=== PATIENT | male | born 1930 | race Caucasian/White ===

== ENCOUNTER 2018-11-08 04:35 | Inpatient (IN) | payer OTHER ==
[2018-11-08] VITALS (18 sets, daily range): BP systolic 93–140; BP diastolic 41–65; Ht 175.3 cm; Wt 81.1 kg
[~2018-11-08] VITALS: Ht 175.3 cm; Wt 81.1 kg
--- NOTE | ~2018-11-08 | HEMODYNAMI ---
PATIENT:ALONDRA DEXTER MEDICAL RECORD: [id number] : 34 [id number] ADMISSION DATE: 11/08/18 Generatedon:11/08/20185:36 Patient name: ALONDRA DEXTER Patient #: [id number] SSN: : 1930 Date of study: 11/08/2018 Page: Of Hemodynamic Procedure Report Patient Data Patient Demographics Procedure consent was obtained First Name: ALONDRA Gender: Male Last Name: ISACC : 1930 Patient #: [id number] Age: 88 year(s) Race: Unknown Additional ID: [id number] Admission Admission Data Admission Date: 11/08/2018 Admission Time: 4:35 Arrival Date: 11/08/2018 Arrival Time: 0:00 Admit Source: Emergency department Procedure Procedure Types Cath Procedure Diagnostic Procedure LHC LHC w/Coronaries Sedation Charges Moderate Sedation up to 30 minutes PCI Procedure Coronary Stent Coronary Stent Initial Procedure Description Procedure Date Procedure Date: 11/08/2018 Procedure Start Time: 5:10 Procedure End Time: 5:30 Procedure Staff Name Function Alexsander Rivera MD Performing Physician Holly Paul RT Monitor Christine Proctor RN Nurse Eladia Adhikari RT Scrub Procedure Data Cath Procedure Fluoroscopy Diagnostic fluoroscopy Total fluoroscopy Time: 6.8 time: 6.8 min min Diagnostic fluoroscopy Total fluoroscopy dose: dose: 1011 mGy 1011 mGy Contrast Material Contrast Material Type Amount (ml) Isovue 300 127 Entry Location Entry Primary Successful Side Size Upsize Upsize Entry Closure Succes sful Closure Location (Fr) 1 (Fr) 2 (Fr) Remarks Device Remarks Femoral Left 6 Fr Exoseal artery Short Estimated blood loss: 5 ml Diagnostic catheters Device Type Used For End Catheter Placement MULTIPACK Pigtail 5 Fr LV Angiography catheter MULTIPACK JL 4.0 5Fr Left Coronary catheter Angiography MULTIPACK 3DRC 5Fr Right Coronary catheter Angiography Procedure Complications No complications Procedure Medications Medication Administration Route Dosage 0.9% NaCl I.V. 100 ml/hr Oxygen etCO2 Nasal cannula 3 l/min Lidocaine 2% added to field 20 Heparin Flush Bag added to field 2 bags (1000units/500ml NS) Amiodarone I.V. drip 1 mg/min (600mg/100ml) Phenergan I.V. 25 mg Versed I.V. 2 mg Fentanyl I.V. 100 mcg Integrilin (Bolus I.V. 9 ml 2mg/ml) Heparin Bolus I.V. 5000 units Integrilin (Bolus wasted 1 ml 2mg/ml) Benadryl I.V. 50 mg Integrilin (Bolus I.C. 9 ml 2mg/ml) Integrilin (Bolus wasted 1 ml 2mg/ml) Lopressor I.V. 5 mg Plavix P.O. 600 mg Hemodynamics Rest Heart Rate: 154 (bpm) Snapshots Pre Cath Intra NCS Post Cath Vital Signs Time Heart Resp SPO2 etCO2 NIBP (mmHg) Rhythm Pain Sedation Rate (ipm) (%) (mmHg) Status Level (bpm) 4:59:18 87 24 97 16 141/70(107) NSR 0 (11) 10(A) , No pain 5:03:45 86 13 97 10 125/75(101) NSR 0 (11) 10(A) , No pain 5:08:05 89 12 97 8.9 136/72(104) NSR 0 (11) 9(A) , No pain 5:12:29 93 14 98 17.9 142/70(104) NSR 0 (11) 9(A) , No pain 5:17:28 69 24 98 5.9 Measuring NSR 0 (11) 9(A) , No pain 5:17:49 83 17 97 14.9 98/43(53) NSR 0 (11) 9(A) , No pain 5:22:47 82 14 98 11.2 Measuring NSR 0 (11) 9(A) , No pain 5:22:54 82 15 98 11.2 124/62(85) NSR 0 (11) 9(A) , No pain 5:27:10 82 19 99 16 120/68(90) NSR 0 (11) 10(A) , No pain 5:31:28 87 18 98 12.7 116/62(94) NSR 0 (11) 10(A) , No pain Medications Time Medication Route Dose Verified Delivered Reason Notes Effectiveness by by 5:05:29 Benadryl I.V. 50 mg Alexsander Christine used for Nicole Proctor seaman 5:05:40 0.9% NaCl I.V. 100 Alexsander Christine used for ml/hr Nicole rPoctor seaman 5:05:47 Oxygen etCO2 3 Alexsander Christine used for Nasal l/min Nicole Proctor procedure cannula RN 5:05:53 Lidocaine 2% added 20ml Alexsander Alexsander for local to vial Nicole Rivera MD anesthetic field 5:05:57 Amiodarone I.V. 1 Alexsander Christine used for infus ing (600mg/100ml) drip mg/min Nicole Proctor procedure upon RN arrival to 5:05:57 Heparin Flush added 2 bags Alexsander Brandrey used for Bag to Nicole Rivera MD procedure (1000units/500ml field NS) 5:06:16 Phenergan I.V. 25 mg Alexsander Christine for nausea Nicole Proctor RN 5:06:26 Versed I.V. 2 mg Alexsander Christine for sedation Nicole Proctor RN 5:06:33 Fentanyl I.V. 100 Alexsander Christine for sedation mcg Nicole Proctor RN 5:11:59 Integrilin I.V. 9 ml Alexsander Christine for (Bolus 2mg/ml) Nicole Proctor antiplatelet RN therapy 5:12:10 Heparin Bolus I.V. 5000 Alexsander Christine for verif ied units Nicole Proctor anticoagulation with Dr. BASSEM Rivera 5:12:24 Integrilin wasted 1 ml Alexsander Hogana for (Bolus 2mg/ml) Nicole Proctor antiplatelet RN therapy 5:22:21 Integrilin I.C. 9 ml Alexsander Brandrey for (Bolus 2mg/ml) Nicole Rivera MD antiplatelet therapy 5:23:53 Integrilin wasted 1 ml Alexsander Beltre for (Bolus 2mg/ml) Nicole Rivera MD antiplatelet therapy 5:26:48 Lopressor I.V. 5 mg Alexsander Christine Per physician Nicole Proctor RN 5:27:51 Plavix P.O. 600 mg Alexsander Caraballoyla for Nicole Proctor antiplatelet RN therapy Procedure Log Time Note 4:40:45 Christine Proctor RN sent for patient. Start room use. 4:40:50 PCI Cath status Emergency 4:47:35 Admit Source: Emergency department 4:47:40 Arrival Date: 11/08/2018 12:00:00 AM 4:52:55 Time tracking: Regular hours (M-F 7:00 - 5:00) 4:53:01 Plan of Care:Hemodynamics will remain stable., Cardiac rhythm will remain stable., Comfort level will be maintained., Respiratory function will remain adequate., Patient/ family verbilizes understanding of procedure., Procedure tolerated without complication., Recovers from procedure without complications.. 4:53:08 Patient received from ED to CCL 1 Alert and oriented. Tansferred to table in Supine position. 4:53:10 Signed procedure consent form obtained from patient. 4:53:12 Warm blankets applied, and terra hugger turned on for patient comfort. 4:53:12 Correct patient and procedure confirmed by team. 4:53:12 ECG and BP/O2 sat monitors applied to patient. 4:57:54 Vital chart was started 5:00:39 Baseline sample Acquired. 5:00:49 Full Disclosure recording started 5:00:53 H&P Date Dictated: 11/08/2018 New H&P dictated by physician.. 5:00:54 Pre-procedure instructions explained to patient. 5:00:55 Pre-op teaching completed and patient verbalized understanding. 5:00:56 Family in waiting room. 5:00:58 Patient NPO since Midnight. 5:01:28 Is the patient allergic to Iodine/contrast media? No. 5:01:29 Was the patient premedicated? No 5:01:31 Is patient on blood thinner?Yes 5:01:34 ACC The patient was administered the following blood thiners within the last 24 hours: ACCHeparin 5:01:38 Patient diabetic? No. 5:01:40 Previous problem with sedation/anesthesia? No ? 5:01:42 Snore? Unknown 5:01:54 Sleep apnea? No 5:01:55 Deviated septum? No 5:01:56 Opens mouth fully? Yes 5:01:57 Sticks out tongue? Yes 5:02:30 Airway obstruction? Unknown ? 5:02:33 Dentures? Unknown ? 5:02:40 Pre procedure: right dorsailis pedis pulse 1+ Palpable, but thready & weak; easily obliterated 5:02:42 Pre procedure: left dorsailis pedis pulse 1+ Palpable, but thready & weak; easily obliterated 5:02:45 Patient pain scale 7/10 ?. 5:02:54 IV patent on arrival in right forearm with 0.9% NaCl at KVO. 5:02:58 Lab results completed and on chart. 5:03:02 Left groin area was prepped with chlora-prep and draped in sterile fashion 5:03:03 Alarms reviewed by R. N. 5:03:04 Sharps counted by scrub and verified by R.N. 5:03:05 Physician arrived 5:03:05 --------ALL STOP TIME OUT------ 5:03:06 Final Timeout: patient, procedure, and site verified with staff and physician. All members of the team are in agreement. 5:03:09 Left groin site verified by team. 5:03:12 Fire Safety Assessment: A--An alcohol-based skin anteseptic being used preoperatively., C--Open oxygen or nitrous oxide is being used., D--An ESU, laser, or fiber-optic light is being used. 5:03:17 Sedation plan: IV Moderate Sedation Medication:Versed, Fentanyl 5:05:29 Benadryl 50 mg I.V. was administered by Christine Proctor RN; used for procedure; 5:05:40 0.9% NaCl 100 ml/hr I.V. was administered by Christine Proctor RN; used for procedure; 5:05:47 Oxygen 3 l/min etCO2 Nasal cannula was administered by Christine Proctor RN; used for procedure; 5:05:53 Lidocaine 2% 20ml vial added to field was administered by Alexsander Rivera MD; for local anesthetic; 5:05:57 Heparin Flush Bag (1000units/500ml NS) 2 bags added to field was administered by Alexsander Rivera MD; used for procedure; 5:05:57 Amiodarone (600mg/100ml) 1 mg/min I.V. drip was administered by Christine Proctor RN; used for procedure; infusing upon arrival to 5:06:04 Use device set Femoral Dx 5:06:05 ACIST Syringe (18542) opened to sterile field. 5:06:06 Bag Decanter (2002S) opened to sterile field. 5:06:06 Medline Cath Pack ([id number]) opened to sterile field. 5:06:08 ACIST Hand Control (07300) opened to sterile field. 5:06:08 ACIST Manifold (57084) opened to sterile field. 5:06:08 DIAGNOSTIC Multipack 5Fr catheter set ([id number]) opened to sterile field. 5:06:09 Tegaderm 4 x 4 (1626W) opened to sterile field. 5:06:10 EMERALD Guide Wire (436-474) opened to sterile field. 5:06:16 Phenergan 25 mg I.V. was administered by Christine Proctor RN; for nausea; 5:06:22 SHEATH 6FR [place] (JXE716) opened to sterile field. 5:06:26 Versed 2 mg I.V. was administered by Christine Proctor RN; for sedation; 5:06:33 Fentanyl 100 mcg I.V. was administered by Christine Proctor RN; for sedation; 5:06:44 Baseline sample Acquired. 5:07:46 ECG and BP/O2 sat monitors applied to patient. 5:07:52 2) 60-89 Mildly reduced kidney function, and other findings (as for stage 1) point to kidney disease. 5:08:22 Zero performed for pressure channel P1 5:08:44 Procedure started. 5:10:31 Local anesthetic to left femerol artery with Lidocaine 2% by Alexsander Rivera MD.INITIAL ACCESS ONLY 5:11:39 A 6 Fr Short sheath was inserted into the Left Femoral artery 5:11:46 A MULTIPACK Pigtail 5 Fr catheter was advanced over the wire and used for LV Angiography. 5:11:51 LV hemodynamics recorded. 5:11:52 LV gram done using JASMINE 5:11:54 Injector settings: Ml/sec: 5, Volume: 15, 5:11:59 Integrilin (Bolus 2mg/ml) 9 ml I.V. was administered by Christine Proctor RN; for antiplatelet therapy; 5:12:00 EF : 20 % 5:12:03 Catheter removed. 5:12:08 A MULTIPACK JL 4.0 5Fr catheter was advanced over the wire and used for Left Coronary Angiography. 5:12:10 Heparin Bolus 5000 units I.V. was administered by Christine Proctor RN; for anticoagulation; verified with Dr. Rivera 5:12:24 Integrilin (Bolus 2mg/ml) 1 ml wasted was administered by Christine Proctor RN; for antiplatelet therapy; 5:12:36 LCA angiography performed. 5:12:39 Injector settings: Ml/sec: 3, Volume: 6, 5:13:00 Catheter removed. 5:13:07 A MULTIPACK 3DRC 5Fr catheter was advanced over the wire and used for Right Coronary Angiography. 5:13:23 CHOICE PT Extra Support 182cm wire ([id number]) opened to sterile field. 5:13:24 INFLATOR Merit BasixCompak (AN0320) opened to sterile field. 5:13:25 GUIDE 6FR XB 4.0 catheter ([id number]) opened to sterile field. 5:13:55 RCA angiography performed. 5:13:57 Injector settings: Ml/sec: 3, Volume: 6, 5:14:01 ACCDominant side:Left 5:14:01 Catheter removed. 5:14:02 Pre PCI Site: [place] mCirc has 100% stenosis. 5:14:02 ACC Pre-intervention FRIDA Flow is 1. 5:14:02 Proceeding to intervention. 5:14:03 6 Fr xb 4 guide catheter was inserted over the wire 5:14:04 choice pt wire advanced. 5:17:13 Inflate balloon Inflation number: 1 A EUPHORA 3.0 x 20 Balloon ([id number]) was prepped and advanced across the Mid CX 100, then inflated to 7 PIEDAD for 0:10 (min:sec) . 5:17:20 Inflation number: 2 The EUPHORA 3.0 x 20 Balloon ([id number]) was reinflated across the Mid CX , to 7 PIEDAD for 0:10 (min:sec) . 5:17:54 Inflation number: 3 The EUPHORA 3.0 x 20 Balloon ([id number]) was reinflated across the Mid CX , to 7 PIEDAD for 0:10 (min:sec) . 5:18:13 Balloon removed over the wire. 5:19:26 Place stent Inflation Number: 4 A INTEGRITY RX 3.0 x 22 stent ([id number]) was prepped and advanced across the Mid CX . The stent was deployed at 13 PIEDAD for 0:10 (min:sec) . 5:20:00 Stent catheter was removed intact over wire. 5:21:19 Wire removed. 5:21:22 CHOICE PT Extra Support 182cm wire ([id number]) opened to sterile field. 5:21:33 choice pt wire advanced. 5:22:21 Integrilin (Bolus 2mg/ml) 9 ml I.C. was administered by Alexsander Rivera MD; for antiplatelet therapy; 5:23:01 Wire removed. 5:23:10 FIELDER XT 190cm guidewire ([id number]) opened to sterile field. 5:23:53 Integrilin (Bolus 2mg/ml) 1 ml wasted was administered by Alexsander Rivera MD; for antiplatelet therapy; 5:26:48 Lopressor 5 mg I.V. was administered by Christine Proctor RN; Per physician; 5:27:19 Wire removed. 5:27:20 Guide catheter removed. 5:27:37 EXOSEAL 6Fr (EX600) opened to sterile field. 5:27:47 Sheath removed intact; hemostasis achieved with Exoseal to the Left Femoral artery. 5:27:51 Plavix 600 mg P.O. was administered by Christine Proctor RN; for antiplatelet therapy; 5:27:52 ACC Post-intervention FRIDA Flow is 3. 5:28:15 Procedure ended.(Physican Out) 5:29:06 Fluoroscopy time 06.80 minutes. 5:29:10 Fluoroscopy dose: 1011 mGy 5:29:10 Flurop Dose total: 1011 5:29:23 Dose Area Product 21329 mGy/cm. 5:29:30 Contrast amount:Isovue 300 127ml. 5:29:31 Sharps counted by scrub and verified by R.N. 5:29:37 Insertion/operative site no bleeding no hematoma. 5:29:40 Post-op/insertion site Left Femoral artery dressed using a 4 x 4 and Tegaderm. 5:29:42 Post Procedure Pulses reassessed and unchanged 5::44 Post procedure rhythm: unchanged. 5:29:47 Estimated blood loss: 5 ml 5:29:57 Post procedure instruction explained to patient.Patient verbalizes understanding. 5::58 Patient needs reinforcement of post procedure teaching. 5:30:32 Procedure type changed to Cath procedure, Diagnostic procedure, LHC, LHC w/Coronaries, Sedation Charges, Moderate Sedation up to 30 minutes, PCI procedure, Coronary Stent, Coronary Stent Initial 5:30:33 Procedure and supply charges have been captured, reviewed, submitted and are correct. 5:30:38 Procedure Complication : No complications 5:30:41 Vital chart was stopped 5:30:42 See physician's report for complete and final results. 5:30:53 Report given to CVICU. 5:30:56 Patient transfered to CVICU with Stretcher. 5:30:59 Procedure ended. 5:30:59 Full Disclosure recording stopped 5:31:07 ACC-PCI Only Patient was given prescriptions, or instructed by Alexsander Rivera MD to start/continue the following medications upon discharge: Plavix 5:31:09 End room use (Document Last) Intervention Summary Intervention Notes Time ActionType Lesion and Equipment Action# Pressure Duration Attributes Used 5:17:13 Inflate Mid CX EUPHORA 3.0 1 7 00:10 balloon x 20 Balloon ([id number]) 5:17:20 Reinflate Mid CX EUPHORA 3.0 2 7 00:10 balloon x 20 Balloon ([id number]) 5:17:54 Reinflate Mid CX EUPHORA 3.0 3 7 00:10 balloon x 20 Balloon ([id number]) 5:19:26 Place stent Mid CX INTEGRITY RX 4 13 00:10 3.0 x 22 stent ([id number]) Device Usage Item Name Manufacture Quantity Catalog Number Hospital Part Current [facility] Lot# / Charge Number Stock Stock Serial# Code ACIST Acist 1 04927 568404 776298 742692 20 Syringe Medical (35366) Systems Inc Bag Decanter Microtek 1 2001S 195259 07413 489863 5 () Medical Inc. Medline Cath Medline 1 [id number] 763334 22744 880071 5 Pack ([id number]) ACIST Hand Acist 1 52512 552622 008138 721562 5 Control Medical (73346) Systems Inc ACIST Acist 1 48708 154705 048336 962316 5 Manifold Medical (30537) Systems Inc DIAGNOSTIC Cardinal 1 TA8727 846732 36386 696359 30 Multipack Health 5Fr catheter set (BX4857) Tegaderm 4 x 3M 1 1626W 851168 075942 534272 5 4 (1626W) EMERALD Cardinal 1 502-455 086886 489163 961909 5 Guide Wire Health (502455) SHEATH 6FR Terumo 1 OHY522 028764 076614 660701 40 [place] (MIG280) MULTIPACK Cardinal 1 218730 5 Pigtail 5 Fr Health catheter MULTIPACK JL Cardinal 1 043940 5 4.0 5Fr Health catheter MULTIPACK Cardinal 1 156088 5 3DRC 5Fr Health catheter CHOICE PT [place] 2 [id number] 400372 670151 830622 5 Extra Scientific Support 182cm wire ([id number]) INFLATOR Merit 1 GN4072 835977 418507 910718 15 [employer] Medical BasixCompak (EQ4994) GUIDE 6FR XB Cardinal 1 [id number] 470981 342252 732971 2 4.0 catheter BioAtlantis (47129848) EUPHORA 3.0 Medtronic 1 [id number] 316938 973955 745488 5 [id number] x 20 Balloon ([id number]) INTEGRITY RX Medtronic 1 [id number] 111275 284659 663297 5 [id number] 3.0 x 22 stent ([id number]) FIELDER XT Hendrickson 1 [id number] 497430 11100 207100 5 190cm Vascular guidewire ([id number]) EXOSEAL 6Fr Cardinal 1 EX600 945370 105367 648491 10 (EX600) Health Signature Audit [place]ball Stage Time Signature Unsigned Intra-Procedure 11/08/2018 Holly Paul 5:36:46 AM RT(R) Signatures Performing Physician : Signature : Alexsander Rivera MD Date : Time : Monitor : Holly Paul RT Signature : Date : Time : Nurse : Christine Proctor RN Signature : Date : Time : [place] [id number] [place] [address]
[2018-11-08] MEDS ORDERED: OMEPRAZOLE20 M1 PO (08:22)
[2018-11-08] MEDS ORDERED: DONEPEZIL HCL5 MG PO (08:23)
[2018-11-08] MEDS ORDERED: FLOMAX0.4 MG PO (08:24)
[2018-11-08] MEDS ORDERED: ZYRTEC10 MG PO (08:25)
[2018-11-08] MEDS ORDERED: PIOGLITAZONE15 MG PO (08:26)
[2018-11-08] MEDS ORDERED: PROSCAR5 MG PO (08:26)
[2018-11-08 08:55] LABS: BASOPHILS 0.1 % (0-2); EOSINOPHILS 0.3 % (0-7); HEMATOCRIT 37.3 % (42.0-54.0); IMMATURE GRANULOCYTES 0.4 % (0-5); LYMPHOCYTES 9.4 % (15-50); MCH 27.3 pg (26.0-34.0); MCHC 34.9 g/dL (31.0-37.0); MCV 78.2 fL (80.0-100.0); MEAN PLATELET VOLUME 9.5 fL (7.4-10.4); MONOCYTES 5.9 % (2-11); NEUTROPHILS 83.9 % (40-80); PLATELET COUNT 319 10x3/uL (130-400); RBC 4.77 10x6/uL (4.20-6.10); RDW 14.3 % (11.5-14.5); WBC 18.1 10x3/uL (4.8-10.8)
[2018-11-08 09:13] LABS: ANION GAP 16.6 mmol/L (8-16); BILIRUBIN - TOTAL 0.39 mg/dL (0.2-1.3); CALCIUM 8.2 mg/dL (8.5-10.1); CARBON DIOXIDE 19.7 mmol/L (21.0-32.0); CREATININE - SERUM 1.3 mg/dL (0.6-1.3); POTASSIUM - SERUM 4.3 mmol/L (3.5-5.1); PROTEIN - SERUM 7.1 g/dL (6.4-8.2)
[2018-11-09] VITALS (19 sets, daily range): BP systolic 99–234; BP diastolic 39–124
[2018-11-09] MEDS ORDERED: EFFIENT10 MG PO (09:27)
[2018-11-09] MEDS ORDERED: BAYER CHEWABLE81 MG PO (09:33)
[2018-11-09] MEDS ORDERED: PRAVACHOL40 MG PO (10:25)
--- NOTE | 2018-11-09 12:09 | MORECARE ---
CASE MANAGEMENT DISCHARGE SUMMARY PATIENT: ALONDRA DEXTER UNIT: [id number] ADM DATE: 11/08/18 AGE: 88 : 32 SEX: M ROOM/BED: D.CV06 AUTHOR: MICHEL SENA PHYSICIAN: REFERRING PHYSICIAN: NILS STANTON MD DATE OF SERVICE: 11/09/18 Discharge Plan Patient Name: ALONDRA DEXTER Facility: [facility]:[place] : 1930 Planned Disposition: Home with Home Health Anticipated Discharge Date: Discharge Date: Expected LOS: Initial Reviewer: [email or web address] Initial Review Date: 11/08/2018 Generated: 11/09/18 1:09 pm Comments DCP- Discharge Planning Updated by [email or web address]: Su Ventura on 11/09/18 10:[address] CM called the [place] expeditor, spoke to [facility], notified her the patient transferred from Outside facility to our ER and went to laboratory geneticist. Informed her that the patient had a dc order for today. Su Ventura RN, [facility] DCPIA - Discharge Planning Initial Assessment Updated by [email or web address]: Yamel Lua on 11/09/18 12:05 pm * Is the patient Alert and Oriented? Yes * How many steps to enter\exit or inside your home? RAMP * PCP [place] -[place] * Pharmacy [facility] * Preadmission Environment Home with Family * ADLs Partial Dependent * Partial ADLs (Assistance needed) Bathing Dressing Eating Medication Management Toileting Transfers * Other Equipment WALKER, W/C ,BSC, HAND RAILS, * List name and contact numbers for known caregivers / representatives who currently or will assist patient after discharge: PEMA [facility]- [phone] * Verbal permission to speak to the caregivers and representatives has been obtained from the patient. Yes * Community resources currently utilized None * Additional services required to return to the preadmission environment? No * Can the patient safely return to the preadmission environment? Yes * Has this patient been hospitalized within the prior 30 days at any hospital? Yes Patient Name: ALONDRA DEXTER Page 97372 at 1209 All edits/amendments must be made on the electronic document DICTATION DATE: 11/09/181208 FIRST AID DIRECTOR: KARELY 11/09/181208 RPT#: [id number] DC DATE: STATUS: ADM IN [facility] [address] [place] [address] END OF REPORT
--- NOTE | 2018-11-09 12:20 | MORECARE ---
CASE MANAGEMENT DISCHARGE SUMMARY PATIENT: ALONDRA DEXTER UNIT: [id number] ADM DATE: 11/08/18 AGE: 88 : 32 SEX: M ROOM/BED: D.06 AUTHOR: JAIDA,DOC PHYSICIAN: REFERRING PHYSICIAN: NILS STANTON MD DATE OF SERVICE: 11/09/18 Discharge Plan Patient Name: ALONDRA DEXTER [facility] [facility] 1930 Planned Disposition: Home with Home Health Anticipated Discharge Date: Discharge Date: Expected LOS: Initial Reviewer: [email or web address] Initial Review Date: 11/08/2018 Generated: 11/09/18 1:20 pm Comments DCP- Discharge Planning Updated by [email or web address]: Yamel Lua on 11/09/18 11:[address] Patient Name: ALONDRA DEXTER Admission Status: ER Accout number: [id number] Admission Date: 11-08-2018 : 1930 Admission Diagnosis: Attending: EMILY STANTON Current LOS: 1 Anticipated DC Date: Planned Disposition: Home with Home Health Primary Insurance: [employer] Discharge Planning Comments: CM met with patient and spouse Pema at bedside after explaining CM role and obtaining verbal consent. Patient lives at home with his Pema and plans to return there upon discharge. Patient feels this would be a safe discharge. CM discussed availability / needs of home health and medical equipment. Physical Therapy recommends Home Health Services. [facility] signed for [place] . [facility] notified Scooter @ [facility] will see patient tomorrow and d/c records faxed. IMM signed Patient denies any discharge needs at this time. Patient states he will have his drive him home upon discharge. CM will continue to follow and assist as needed with discharge planning / needs. Menagerie Superintendent: Yamel Lua DCP- Discharge Planning Updated by [email or web address]: Su Ventura on 11/09/18 10:[address] CM called the [place] expeditor, spoke to Gianna, notified her the patient transferred from Outside facility to our ER and went to earthmoving labourer. Informed her that the patient had a dc order for today. Su Ventura RN, [facility] DCPIA - Discharge Planning Initial Assessment Updated by [email or web address]: Yamel Lua on 11/09/18 12:05 pm * Is the patient Alert and Oriented? Yes * How many steps to enter\exit or inside your home? RAMP * PCP [place] * [facility] [place] [facility] * Preadmission Environment Home with Family * ADLs Partial Dependent * Partial ADLs (Assistance needed) Bathing Dressing Eating Medication Management Toileting Transfers * Other Equipment WALKER, W/C ,BSC, HAND RAILS, * List name and contact numbers for known caregivers / representatives who currently or will assist patient after discharge: PEMA [facility] [phone] * Verbal permission to speak to the caregivers and representatives has been obtained from the patient. Yes * Community resources currently utilized None * Additional services required to return to the preadmission environment? No * Can the patient safely return to the preadmission environment? Yes * Has this patient been hospitalized within the prior 30 days at any hospital? Yes Last DP export: 11/09/18 11:09 a Patient Name: ALONDRA DEXTER Page [phone] at 1220 All edits/amendments must be made on the electronic document DICTATION DATE: 11/09/18 1220 ENVIRONMENTAL TECHNICAL OFFICER: KARELY 11/09/18 1220 RPT#: [id number] DC DATE: STATUS: ADM IN [facility] [address] [place] [address] END OF REPORT
--- NOTE | 2018-11-09 12:29 | MORECARE ---
CASE MANAGEMENT DISCHARGE SUMMARY PATIENT: ALONDRA DEXTER UNIT: [id number] ADM DATE: 11/08/18 AGE: 88 : 32 SEX: M ROOM/BED: D.06 AUTHOR: JAIDA,DOC PHYSICIAN: REFERRING PHYSICIAN: NILS STANTON MD DATE OF SERVICE: 11/09/18 Discharge Plan Patient Name: ALONDRA DEXTER [facility] [facility] 1930 Planned Disposition: Home with Home Health Anticipated Discharge Date: Discharge Date: Expected LOS: Initial Reviewer: [email or web address] Initial Review Date: 11/08/2018 Generated: 11/09/18 1:29 pm Comments DCP- Discharge Planning Updated by [email or web address]: Yamel Lua on 11/09/18 11:[address] Patient Name: ALONDRA DEXTER Admission Status: ER Accout number: [id number] Admission Date: 11-08-2018 : 1930 Admission Diagnosis: Attending: EMILY STANTON Current LOS: 1 Anticipated DC Date: Planned Disposition: Home with Home Health Primary Insurance: [employer] Discharge Planning Comments: CM met with patient and spouse Pema at bedside after explaining CM role and obtaining verbal consent. Patient lives at home with his Pema and plans to return there upon discharge. Patient feels this would be a safe discharge. CM discussed availability / needs of home health and medical equipment. Physical Therapy recommends Home Health Services. [facility] signed for [employer] . [facility] notified Scooter @ [facility] will see patient tomorrow and d/c records faxed. IMM signed Patient denies any discharge needs at this time. Patient states he will have his drive him home upon discharge. CM will continue to follow and assist as needed with discharge planning / needs. Operating Room Assistant: Yamel Lua DCP- Discharge Planning Updated by [email or web address]: Su Ventura on 11/09/18 10:[address] CM called the [place] expeditor, spoke to Gianna, notified her the patient transferred from Outside facility to our ER and went to chemical laboratory scientist. Informed her that the patient had a dc order for today. Su Ventura RN, [facility] DCPIA - Discharge Planning Initial Assessment Updated by [email or web address]: Yamel Lua on 11/09/18 12:05 pm * Is the patient Alert and Oriented? Yes * How many steps to enter\exit or inside your home? RAMP * PCP [facility] -[place] * [place] [facility] * Preadmission Environment Home with Family * ADLs Partial Dependent * Partial ADLs (Assistance needed) Bathing Dressing Eating Medication Management Toileting Transfers * Other Equipment WALKER, W/C ,BSC, HAND RAILS, * List name and contact numbers for known caregivers / representatives who currently or will assist patient after discharge: PEMA [facility] [phone] * Verbal permission to speak to the caregivers and representatives has been obtained from the patient. Yes * Community resources currently utilized None * Additional services required to return to the preadmission environment? No * Can the patient safely return to the preadmission environment? Yes * Has this patient been hospitalized within the prior 30 days at any hospital? Yes External Providers External Provider: Rishabh OkeanaMacario Nelson Next Contact Date: Service Request Date: Service Type: Resolution: Reviewer: Comments: Last DP export: 11/09/18 11:20 a Patient Name: ALONDRA DEXTER Page [id number] at 1229 All edits/amendments must be made on the electronic document DICTATION DATE: 11/09/181228 FELLING MACHINE OPERATOR: KARELY 11/09/181228 RPT#: [id number] DC DATE: STATUS: ADM IN [facility] [address] [place] [address] END OF REPORT
--- NOTE | 2018-11-09 17:11 | MORECARE ---
CASE MANAGEMENT DISCHARGE SUMMARY PATIENT: ALONDRA DEXTER UNIT: [id number] ADM DATE: 11/08/18 AGE: 88 : 32 SEX: M ROOM/BED: D.06 AUTHOR: JAIDA,DOC PHYSICIAN: REFERRING PHYSICIAN: NILS STANTON MD DATE OF SERVICE: 11/09/18 Discharge Plan Patient Name: ALONDRA DEXTER [facility] [facility] 1930 Planned Disposition: Home with Home Health Anticipated Discharge Date: Discharge Date: 11/09/2018 Expected LOS: Initial Reviewer: [email or web address] Initial Review Date: 11/08/2018 Generated: 11/09/18 6:11 pm Comments DCP- Discharge Planning Updated by [email or web address]: Yamel Lua on 11/09/18 11:[address] Patient Name: ALONDRA DEXTER Admission Status: ER Accout number: [id number] Admission Date: 11-08-2018 : 1930 Admission Diagnosis: Attending: EMILY STANTON Current LOS: 1 Anticipated DC Date: Planned Disposition: Home with Home Health Primary Insurance: [employer] Discharge Planning Comments: CM met with patient and spouse Pema at bedside after explaining CM role and obtaining verbal consent. Patient lives at home with his Pema and plans to return there upon discharge. Patient feels this would be a safe discharge. CM discussed availability / needs of home health and medical equipment. Physical Therapy recommends Home Health Services. [facility] signed for [facility] . [facility] notified Scooetr @ [facility] will see patient tomorrow and d/c records faxed. IMM signed Patient denies any discharge needs at this time. Patient states he will have his drive him home upon discharge. CM will continue to follow and assist as needed with discharge planning / needs. Plate Straightener: Yamel Lua DCP- Discharge Planning Updated by [email or web address]: Su Ventura on 11/09/18 10:[address] CM called the [place] expeditor, spoke to [facility], notified her the patient transferred from Outside facility to our ER and went to laborer vineyard. Informed her that the patient had a dc order for today. Su Ventura RN, [facility] DCPIA - Discharge Planning Initial Assessment Updated by [email or web address]: Yamel Lua on 11/09/18 12:05 pm * Is the patient Alert and Oriented? Yes * How many steps to enter\exit or inside your home? RAMP * [place]CP [facility] [place] * [place] [facility] * Preadmission Environment Home with Family * ADLs Partial Dependent * Partial ADLs (Assistance needed) Bathing Dressing Eating Medication Management Toileting Transfers * Other Equipment WALKER, W/C ,BSC, HAND RAILS, * List name and contact numbers for known caregivers / representatives who currently or will assist patient after discharge: PEMA [facility]- [phone] * Verbal permission to speak to the caregivers and representatives has been obtained from the patient. Yes * Community resources currently utilized None * Additional services required to return to the preadmission environment? No * Can the patient safely return to the preadmission environment? Yes * Has this patient been hospitalized within the prior 30 days at any hospital? Yes Last DP export: 11/09/18 11:29 a Patient Name: ALONDRA DEXTER Page [phone] at 1711 All edits/amendments must be made on the electronic document DICTATION DATE: 11/09/181710 BOTTOM PRESSER: KARELY 11/09/181710 RPT#: [id number] DC DATE:11/09/18 STATUS: DIS IN [facility] [address] [place] [address] END OF REPORT
--- NOTE | 2018-11-14 11:09 | EC ---
PATIENT:ALONDRA DEXTER DATE OF SERVICE: 11/08/18 SEX: M MEDICAL RECORD: [id number] DATE OF : [birth year] LOCATION:[place] [address] AGE OF PATIENT: 88 ADMISSION DATE: 11/08/18 REFERRING PHYSICIAN: INTERPRETING PHYSICIAN: NILS RIVERA MD ECHOCARDIOGRAM REPORT ECHO CHARGES 4 ECHO COMPLETE Date: 11/09/18 CLINICAL DIAGNOSIS: POST STENT PLACEMENT, CAD/ASSESS EF ECHOCARDIOGRAPHIC MEASUREMENTS (adult normal given) AC root (d.<3.7cm) 3.8 cm LV Septum d (<1.2 cm> 1.5 cm Valve Excursion 1.5 cm LV Septum (systole) 1.7 cm Left Atria (s.<4.0cm> 3.9 cm LVPW d(<1.2cm) 1.5 cm RV (d.<2.3cm) 3.7 cm LVPW (sytole) 1.7 cm LV diastole(<5.6CM) 4.4 cm MV E-F(>70mm/sec) cm LV systole 3.4 cm LVOT Diameter 1.9 cm MV exc.(>10mm) 1.6 cm Est.ejection fraction (50-75%) % DOPPLER: LVIT cm/sec A 81.0 cm/sec E 37.0 cm/sec LA cm/sec RVSP 30 mmHg LVOT 91 cm/sec AOP1/2T 978 m/s Asc. Ao 113 cm/sec RVOT 80 cm/sec RA 85 cm/sec PA cm/sec AV Gradient Peak 5.09 mmHg AV Mean 2.30 mmHg AV Area 2.3 cm MV Gradient Peak 2.64 mmHg MV Mean 1.00 mmHg MV Area cm COMMENTS: Still Operator Batch Or Continuous: Marilia PURVIS Manager Clinical Services: Philipp Rivera TAPE# PACS Pericardial Effusion N DATE OF SERVICE: 11/09/2018 ECHOCARDIOGRAM DATE OF SERVICE: 11/09/2018 FINDINGS: 1. Left ventricular chamber size is within normal limits. Left ventricular systolic function is normal. Overall ejection fraction estimated at 55%. 2. Left atrium, right atrium, and right ventricular chamber sizes are within ECHOCARDIOGRAM REPORT [id number] ALONDRA DEXTER normal limits. 3. Valvular structures have normal structure and motion. 4. Doppler interrogation reveals mild aortic insufficiency, mild mitral regurgitation, mild tricuspid regurgitation, no other valvular insufficiency or stenosis. Pulmonary systolic pressure is estimated at 30 mmHg. 5. No evidence of pericardial effusion or left ventricular thrombus. TRANSINT:[id number] Voice Confirmation ID: [id number] DOCUMENT ID: [id number] NILS RIVERA MD at 1109 CC: [id number] DICTATION DATE: 11/09/18 1233 BUS DRIVER SUPERVISOR: 11/09/18 1239 DIS IN 11/09/18 [place] [id number] [place] [address]
--- NOTE | 2018-11-14 11:09 | DS ---
PATIENT:ALONDRA DEXTER :[birth year] MEDICAL RECORD: [id number] DISCHARGE SUMMARY ADMISSION DATE: 11/08/18 DISCHARGE DATE: 11/09/18 DISCHARGE DIAGNOSES: 1. Acute inferolateral myocardial infarction. 2. Coronary artery disease. 3. Percutaneous transluminal coronary angioplasty stent of the left circumflex with concomitant disease of LAD diagonal. 4. Hyperlipidemia. HOSPITAL COURSE: Mr. Dexter presented to [facility] with an acute myocardial infarction, transferred here, underwent PTCA stent of left circumflex, discharged home with the addition of aspirin, Plavix, Pravachol to his medical regimen and was brought back only for PTCA stent of the LAD diagonal. TRANSINT:[id number] Voice Confirmation ID: [id number] DOCUMENT ID: [id number] NILS STANTON MD at 1109 CC: [id number] DICTATION DATE: 11/09/18 0853 SISAL PICKER: 11/09/18 0859 DIS IN 11/09/18 [place] [id number] [place] [address]
--- NOTE | 2018-11-14 11:09 | HP ---
PATIENT: ALONDRA DEXETR MEDICAL RECORD: [id number] ACCOUNT: [id number] [facility] [birth year] ADMISSION DATE: 11/08/18 PCP: DOCTOR NEY HISTORY AND PHYSICAL EXAMINATION ADMITTING DIAGNOSES: 1. Acute inferior myocardial infarction. 2. Coronary disease. HISTORY OF PRESENT ILLNESS: This is an 88-year-old gentleman, who presents to [facility] with an acute inferior myocardial infarction. He had one episode of ventricular tachycardia requiring defibrillation. He was flown here. He has continued to have severe chest discomfort. He has no cardiac history. He does not know the medications he is on. He denies any other medical history. PHYSICAL EXAMINATION: CONSTITUTIONAL/GENERAL APPEARANCE: Well nourished, well developed, appears stated age. Level of distress, comfortable. EYES: Lids and conjunctivae noninjected. No discharge. No pallor. ENT: Lips within normal limit. No cyanosis. No pallor. NECK: Carotid arteries, bilateral normal upstroke. No bruits. No thrills. No jugular venous pressure or distention. CERVICAL LYMPH NODES: Nontender. Nonenlarged. THYROID: Not enlarged. No nodules. CARDIOVASCULAR: Precordial exam, nondisplaced. No heaves or pericardial thrills. Rate and rhythm, regular. Heart sounds, normal S1, normal S2. No S3, no gallop, no rub. Systolic murmur, not heard. Diastolic murmur, not heard. RESPIRATORY: Respiratory effort, unlabored. Normal curvature. No thoracic deformity. No chest wall tenderness. Percussion, resonant. Auscultation, clear. No wheezes, no rales, no rhonchi. ABDOMEN: Soft, nondistended, nontender. No abdominal pain, no vomiting and normal appetite. MUSCULOSKELETAL: No joint tenderness, normal gait, normal tone. SKIN: Warm and dry. OVERALL IMPRESSION: Acute inferior myocardial infarction. We will proceed with emergent coronary angiography. Further care depends upon the findings of the angiography. TRANSINT:[id number] Voice Confirmation ID: [id number] DOCUMENT ID: [id number] NILS STANTON MD at 1109 CC: [id number] DICTATION DATE: 11/08/18 045 SHEET ROCK TAPER HELPER: 11/08/18 0502 DIS IN 11/09/18 [facility] [address] [facility] [place] [address]
--- NOTE | 2018-12-01 15:34 | OP ---
PATIENT NAME: ALONDRA DEXTER MEDICAL RECORD: [id number] :34 LOCATION:[facility] ADMISSION DATE:11/08/18 SURGEON: NILS STANTON MD DATE OF OPERATION: 11/08/2018 PROCEDURES: 1. PTCA stent left circumflex. 2. Left heart catheterization. 3. Selective coronary angiography. 4. Left ventriculogram. INDICATION: Acute myocardial infarction. PROCEDURE IN DETAIL: After informed consent was obtained and after a detailed description of risks, benefits as well as alternative therapies, the patient elected to proceed with angiogram and angioplasty. The right femoral area was prepped and draped in normal sterile fashion. Right femoral artery was cannulated via modified Seldinger technique with placement of 6-Northern Irish sheath. All catheters exchanged through this sheath. FINDINGS: Left ventriculogram was performed in standard 30-degree JASMINE view, reveals global hypokinesis, ejection fraction is 20%. SELECTIVE CORONARY ANGIOGRAPHY: 1. Left main is with no significant angiographic disease. 2. Left anterior descending has 95% stenosis of the LAD diagonal, otherwise the LAD has moderate irregularities. 3. Left circumflex is totally occluded. 4. Right coronary artery has moderate irregularities, but no flow-limiting stenosis. PTCA STENT OF THE LEFT CIRCUMFLEX: The large, dominant circumflex was addressed with a 3.0 x 22 mm Integrity stent. Result was 0% residual stenosis. OVERALL IMPRESSION: Successful percutaneous transluminal coronary angioplasty stent of the left circumflex going from 100% initial stenosis to 0% residual. PLAN: For PTCA stent of the LAD diagonal in the near future. TRANSINT:[id number] Voice Confirmation ID: [id number] DOCUMENT ID: [id number] NILS STANTON MD at 1534 CC: [id number] DICTATION DATE: 12/01/18 1123 FOOD PORTER: 12/01/18 1245 DIS IN 11/09/18 [place] [id number]
== END 2018-11-09 13:30 | disposition home or self-care (01) | DRG 249 ==
LOC: D.ER 04:35 → D.CVICU 05:58
PROVIDERS: ADMIT Internal Medicine Interventional Cardiology; ATTEND Internal Medicine Interventional Cardiology
PROC: B2151ZZ Fluoroscopy of Left Heart using Low Osmolar Contrast (ICD-10-PCS; 2018-11-08)
PROC: 4A023N7 Measurement of Cardiac Sampling and Pressure, Left Heart, Percutaneous Approach (ICD-10-PCS; 2018-11-08)
PROC: 02703DZ Dilation of Coronary Artery, One Artery with Intraluminal Device, Percutaneous Approach (ICD-10-PCS; principal; 2018-11-08 04:40)
PROC: B2111ZZ Fluoroscopy of Multiple Coronary Arteries using Low Osmolar Contrast (ICD-10-PCS; 2018-11-08 04:40)
DX: I21.19 ST elevation (STEMI) myocardial infarction involving other coronary artery of inferior wall (principal); I25.10 Atherosclerotic heart disease of native coronary artery without angina pectoris; E78.5 Hyperlipidemia, unspecified

== ENCOUNTER 2018-11-14 08:43 | Outpatient (CLI) | payer MEDICARE ==
[~2018-11-14] VITALS: Ht 175.3 cm; Wt 86.8 kg
--- NOTE | ~2018-11-14 | HEMODYNAMI ---
PATIENT:ALONDRA DEXTER MEDICAL RECORD: [id number] : 34 LOCATION:D.CAT ADMISSION DATE: 11/14/18 Generatedon:11/14/201811:24 Patient name: ALONDRA DEXTER Patient #: [id number] SSN: : [id number] Date of study: 11/14/2018 Page: Of Hemodynamic Procedure Report Patient Data Patient Demographics Procedure consent was obtained First Name: ALONDRA Gender: Male Last Name: ISACC : 1930 Middle Initial: JOHNSON Age: 88 year(s) Patient #: [id number] Race: Unknown Additional ID: [id number] Contact details [address]: [address] [place] [address] State: [place] City: [place] Zip code: [address] Past Medical History Allergies Allergen Reaction Date Comments Reported Other allergy 11/14/2018 PCN, PLAVIX Admission Admission Data Admission Date: 11/14/2018 Admission Time: 8:43 Arrival Date: 11/14/2018 Arrival Time: 0:00 Insurance Payor: Medicare [facility] #: [id number] Height (in.): 68.9 BSA: 2.03 (m2) Height (cm.): 175 BMI: 28.41 (kg/m2) Weight (lbs.): 191.8 Weight (kg.): 87 Lab Results Lab Result Date: 11/14/2018 Lab Result Time: 0:00 Biochemistry Name Units Result Min Max BUN mg/dl 8 --(*---)-- 7 18 Creatinine mg/dl 1.1 --(--*-)-- 0.6 1.3 eGFR ml/min 67.64568 *-(----)-- 90 120 NONAFRICAN CBC Name Units Result Min Max Hematocrit % 35.9 *-(----)-- 42 54 Hemoglobin g/dl 12.3 *-(----)-- 13.5 17.5 Procedure Procedure Types Cath Procedure PCI Procedure Coronary Stent Coronary Stent Initial Procedure Description Procedure Date Procedure Date: 11/14/2018 Procedure Start Time: 11:06 Procedure End Time: 11:19 Procedure Staff Name Function Alexsander Rivera MD Performing Physician Kymberly Martinez RT Monitor Angela Chacon RT Scrub Real Amanda RT Scrub Lazaro Foster RN Nurse Procedure Data Cath Procedure Fluoroscopy Diagnostic fluoroscopy Total fluoroscopy Time: 3.3 time: 3.3 min min Diagnostic fluoroscopy Total fluoroscopy dose: 484 dose: 484 mGy mGy Contrast Material Contrast Material Type Amount (ml) Isovue 300 73 Entry Location Entry Primary Successful Side Size Upsize Upsize Entry Closure Arita ccessful Closure Location (Fr) 1 (Fr) 2 (Fr) Remarks Device Remarks Radial Right 6 Fr Mechanical artery Short Compression Estimated blood loss: 10 ml Procedure Complications No complications Procedure Medications Medication Administration Route Dosage Oxygen etCO2 Nasal cannula 2 l/min Lidocaine 2% added to field 20 0.9% NaCl I.V. 100 ml/hr Heparin Flush Bag added to field 2 bags (1000units/500ml NS) Radial Cocktail I.A. 1 syringe (Verapamil 2mg/Nitro 400mcg/Heparin 1500units) Versed I.V. 1 mg Fentanyl I.V. 50 mcg Heparin Bolus I.V. 4000 units Effient P.O. 10 mg Hemodynamics Rest BSA: 2.03 (m2) HGB: 12.3 (g/dl) O2 Consumption: Estimated: 232.95 (ml/min) O2 Co nsumption indexed: Estimated:114.75 (ml/min/m) Heart Rate: 74 (bpm) Snapshots Pre Cath Intra NCS Post Cath Vital Signs Time Heart Resp SPO2 etCO2 NIBP (mmHg) Rhythm Pain Sedation Rate (ipm) (%) (mmHg) Status Level (bpm) 11:00:51 72 14 96 28.4 130/68(102) NSR 0 (11) 10(A) , No pain 11:05:07 70 13 96 30.7 110/62(90) NSR 0 (11) 10(A) , No pain 11:09:23 74 16 96 26.9 119/54(93) NSR 0 (11) 10(A) , No pain 11:13:35 77 10 92 30.7 104/53(78) NSR 0 (11) 9(A) , No pain 11:17:45 74 12 93 20.2 110/56(85) NSR 0 (11) 10(A) , No pain Medications Time Medication Route Dose Verified Delivered Reason Not es Effectiveness by by 11:00:25 Oxygen etCO2 2 l/min Alexsander Willis used for Nasal Nicole Foster RN procedure cannula 11:00:32 Lidocaine 2% added 20ml Alexsander Beltre for local to vial Nicole Rivera MD anesthetic field 11:01:38 0.9% NaCl I.V. 100 Alexsander Willis Per physician ml/hr Nicole Foster RN 11:01:51 Heparin Flush added 2 bags Alexsander Beltre used for Bag to Nicole Rivera MD procedure (1000units/500ml field NS) 11:07:14 Versed I.V. 1 mg Alexsander Willis for sedation Nicole Foster RN 11:07:20 Fentanyl I.V. 50 mcg Alexsander Willis for sedation Nicole Foster RN 11:07:59 Radial Cocktail I.A. 1 Alexsander Beltre for (Verapamil syringe Nicole Rivera MD vasodilation 2mg/Nitro 400mcg/Heparin 1500units) 11:10:51 Heparin Bolus I.V. 4000 Alexsander Willis for joanna ified units Nicole Foster RN anticoagulation with dr rivera 11:18:17 Effient P.O. 10 mg Alexsander Willis for Nicole Foster RN antiplatelet therapy Procedure Log Time Note 10:23:39 Signed procedure consent form obtained from patient. 10:23:42 Procedure Status Elective Heart Cath (OP). 10:23:44 Time tracking: Regular hours (M-F 7:00 - 5:00) 10:23:47 Plan of Care:Hemodynamics will remain stable., Cardiac rhythm will remain stable., Comfort level will be maintained., Respiratory function will remain adequate., Patient/ family verbilizes understanding of procedure., Procedure tolerated without complication., Recovers from procedure without complications.. 10:23:52 Lazaro Foster RN sent for patient. Start room use. 10:32:02 Patient allergic to Other allergyPCN, PLAVIX 10:33:29 Patient Weight : 191.8 lbs 10:33:33 Patient Height : 68.9 inches 10:34:11 Arrival Date: 11/14/2018 12:00:00 AM 10:34:18 Insurance Payor : Medicare 10:40:28 Patient received from Pre/Post Procedure Room to CCL 1 Alert and oriented. Tansferred to table in Supine position. 10:40:30 Warm blankets applied, and terra hugger turned on for patient comfort. 10:40:30 Correct patient and procedure confirmed by team. 10:40:31 ECG and BP/O2 sat monitors applied to patient. 10:59:44 Vital chart was started 10:59:45 Baseline sample Acquired. 10:59:49 Rhythm: sinus rhythm 10:59:51 Full Disclosure recording started 11:00:25 Oxygen 2 l/min etCO2 Nasal cannula was administered by Lazaro Foster RN; used for procedure; 11:00:32 Lidocaine 2% 20ml vial added to field was administered by Alexsander Rivera MD; for local anesthetic; 11:00:54 H&P Date Dictated: 11/14/2018 Within 30 days and on chart., H&P Addendum completed by physician on day of procedure. (MUST COMPLETE FOR ALL OUTPATIENTS). 11:00:55 Pre-procedure instructions explained to patient. 11:00:55 Pre-op teaching completed and patient verbalized understanding. 11:00:56 Family in patients room. 11:00:57 Patient NPO since Midnight. 11:01:25 Is patient on blood thinner?Yes 11:01:28 ACC The patient was administered the following blood thiners within the last 24 hours: ACCEffient 11:01:38 0.9% NaCl 100 ml/hr I.V. was administered by Lazaro Foster RN; Per physician; 11:01:40 PT CHANGED TO EFFIENT. TAKEN YESTERDAY 11:01:42 Patient diabetic? No. 11:01:45 Previous problem with sedation/anesthesia? No ? 11:01:47 Snore? No 11:01:48 Sleep apnea? No 11:01:49 Deviated septum? No 11:01:50 Opens mouth fully? Yes 11:01:51 Heparin Flush Bag (1000units/500ml NS) 2 bags added to field was administered by Alexsander Rivera MD; used for procedure; 11:01:52 Sticks out tongue? Yes 11:01:54 Airway obstruction? No ? 11:01:59 Dentures? Yes OUT 11:02:01 Modified Johnson's test Ulnar < 7 seconds 11:02:03 Patient pain scale 0/10 ?. 11:02:07 IV patent on arrival in right antecubital with 0.9% NaCl at [facility]. 11::34 Lab Result : BUN 8 mg/dl 11::34 Lab Result : Creatinine 1.1 mg/dl 11::34 Lab Result : eGFR NONAFRICAN 67.65339 ml/min 11::34 Lab Result : Hemoglobin 12.3 g/dl 11::34 Lab Result : Hematocrit 35.9 % 11:02:37 Lab results completed and on chart. 11:02:41 Right Radial & Right Groin area was prepped with chlora-prep and draped in sterile fashion 11::41 Alarms reviewed by R. N. 11:02:42 Sharps counted by scrub and verified by R.N. 11:02:57 Use device set CATH PACK 11:02:58 ACIST Syringe (70896) opened to sterile field. 11:02:58 ACIST Hand Control (99791) opened to sterile field. 11:02:59 ACIST Manifold (52575) opened to sterile field. 11:02:59 Medline Cath Pack ([id number]) opened to sterile field. 11:03:00 Bag Decanter (2002S) opened to sterile field. 11:03:00 EMERALD Guide Wire (502-760) opened to sterile field. 11:03:22 SHEATH 6FR RAIN (2277839) opened to sterile field. 11:03:22 MBrace Wrist Support ([id number]) opened to sterile field. 11:03:23 CHOICE PT Extra Support 182cm wire ([id number]) opened to sterile field. 11:03:32 INFLATOR Merit BasixCompak (DU1764) opened to sterile field. 11:04:55 --------ALL STOP TIME OUT------ 11:04:56 Final Timeout: patient, procedure, and site verified with staff and physician. All members of the team are in agreement. 11:04:58 Right Radial & Right Groin site verified by team. 11:05:00 Fire Safety Assessment: A--An alcohol-based skin anteseptic being used preoperatively., C--Open oxygen or nitrous oxide is being used., D--An ESU, laser, or fiber-optic light is being used. 11:05:04 Physical assessment completed. ASA score P 2 - A patient with mild systemic disease as per Alexsander Rivera MD. 11:05:10 2) 60-89 Mildly reduced kidney function, and other findings (as for stage 1) point to kidney disease. 11:05:13 Maximum allowable contrast dose (3.7 X eGFR X 0.75)176 ml. 11:05:16 Sedation plan: IV Moderate Sedation Medication:Versed, Fentanyl 11:05:57 Zero performed for pressure channel P1 11:06:15 GUIDE 6FR XBLAD 3.5 catheter ([id number]) opened to sterile field. 11:06:18 Procedure started. 11:06:37 Local anesthetic to right radial artery with Lidocaine 2% by Alexsander Rivera MD.INITIAL ACCESS ONLY 11:07:14 Versed 1 mg I.V. was administered by Lazaro Foster RN; for sedation; 11:07:20 Fentanyl 50 mcg I.V. was administered by Lazaro Foster RN; for sedation; 11:07:23 A 6 Fr Short sheath was inserted into the Right Radial artery 11:07:51 6 Fr XBLAD 3.5 guide catheter was inserted over the wire 11:07:59 Radial Cocktail (Verapamil 2mg/Nitro 400mcg/Heparin 1500units) 1 syringe I.A. was administered by Alexsander Rivera MD; for vasodilation; 11::51 Heparin Bolus 4000 units I.V. was administered by Lazaro Foster RN; for anticoagulation; verified with dr rivera 11:11:44 CHOICE ES 182 wire advanced. 11:12:33 Wire advanced across DIAGONAL 11:14:23 Place stent Inflation Number: 1 A COBRA RX 2.5 X 15 Stent was prepped and advanced across the 1st Diag . The stent was deployed at 13 PIEDAD for 0:10 (min:sec) . 11:14:57 ACT drawn and resulted at 316 seconds. (normal therapeutic range 180-240 seconds). 11:15:15 Stent catheter was removed intact over wire. 11:15:20 Wire removed. 11:15:20 Guide catheter removed. 11:16:43 Procedure ended.(Physican Out) 11:17:50 ZEPHYR REGULAR TR BAND (080661) opened to sterile field. 11:18:02 Sheath removed intact; hemostasis achieved with Mechanical Compression to the Right Radial artery. 11:18:06 Fluoroscopy time 03.30 minutes. 11:18:10 Flurop Dose total: 484 11:18:10 Fluoroscopy dose: 484 mGy 11:18:15 Dose Area Product 13272 mGy/cm. 11:18:17 Effient 10 mg P.O. was administered by Lazaro Foster RN; for antiplatelet therapy; 11:18:18 Contrast amount:Isovue 300 73ml. 11:18:20 Maximum allowable dose exceeded? No. 11:18:21 Sharps counted by scrub and verified by R.N. 11:18:23 King band inflated with 10cc of air. 11:18:28 Post-procedure physical assessment completed. ASA score P 2 - A patient with mild systemic disease as per Alexsander Rivera MD. 11:18:32 Post procedure rhythm: sinus rhythm 11:18:34 Estimated blood loss: 10 ml 11:18:35 Post procedure instruction explained to patient.Patient verbalizes understanding. 11:18:36 Patient needs reinforcement of post procedure teaching. 11:19:05 Procedure and supply charges have been captured, reviewed, submitted and are correct. 11:19:07 Procedure Complication : No complications 11:19:08 Vital chart was stopped 11:19:08 See physician's report for complete and final results. 11:19:10 Report given to Pre/Post Procedure Room. 11:19:13 Patient transfered to Pre/Post Procedure Room with Bed. 11:19:15 Procedure ended. 11:19:15 Full Disclosure recording stopped 11:19:18 End room use (Document Last) Intervention Summary Intervention Notes Time ActionType Lesion and Equipment Action# Pressure Duration Attributes Used 11:14:23 Place stent 1st Diag COBRA RX 1 13 00:10 2.5 X 15 Stent Device Usage Item Name Manufacture Quantity Catalog Number Hospital Part Current Minimal Lot# / Charge Number Stock Stock Serial# Code ACIST Syringe Acist 1 35988 875267 815745 221536 20 (50185) Medical Systems Inc ACIST Hand Acist 1 53260 751280 170660 372111 5 Control Medical (64502) [employer] ACIST Manifold Acist 1 95844 830958 558065 924450 5 (96560) Medical Systems Inc Medline Cath Medline 1 [id number] 788155 97910 250750 5 Pack ([id number]) Bag Decanter Microtek 1 2001S 155552 05303 573295 5 (2001S) Medical Inc. EMERALD Guide Cardinal 1 502455 429215 364698 922431 5 Wire (502455) Health SHEATH 6FR Cardinal 1 3902726 398544 4953963 877593 5 RAIN (7602840) Health MBrace Wrist Advanced 1 140-0250-00 665323 79728 407966 5 Support Vascular (543594575) Dynamics CHOICE PT Trinidad 1 [id number] 667332 100620 898276 5 Extra Support Scientific 182cm wire ([id number]) INFLATOR Merit Merit 1 PQ8744 176823 494314 678177 15 BasixCompak Medical (IP9061) GUIDE 6FR Cardinal 1 19057445 539190 594863 528438 10 XBLAD 3.5 Health catheter (79758035) COBRA RX 2.5 X Celonova 1 031-14-40699 005273 [id number] 8067174 2 [id number] 15 stent Biosciences ([id number]) ZEPHYR REGULAR Cardinal 1 598210 165890 0514274 968732 5 TR BAND [employer] (538299) Signature Audit [place] Stage Time Signature Unsigned Intra-Procedure 11/14/2018 Kymberly Martinez 11:24:06 AM RT(R) Signatures Performing Physician : Signature : Alexsander Rivera MD Date : Time : Monitor : Kymberly Martinez Signature : RT Date : Time : Nurse : Lazaro Foster RN Signature : Date : Time : [facility] [address] [place] [address]
[~2018-11-14 08:43] MED LIST: BAYER CHEWABLE81 MG PO; DONEPEZIL HCL5 MG PO; EFFIENT10 MG PO; FLOMAX0.4 MG PO; OMEPRAZOLE20 M1 PO; PIOGLITAZONE15 MG PO; PRAVACHOL40 MG PO; PROSCAR5 MG PO; ZYRTEC10 MG PO
[2018-11-14 09:18] VITALS: BP 132/51; Ht 175.3 cm; Wt 86.8 kg
[2018-11-14 09:53] LABS: BASOPHILS 0.3 % (0-2); EOSINOPHILS 3.8 % (0-7); HEMATOCRIT 35.9 % (42.0-54.0); HEMOGLOBIN 12.3 g/dL (13.5-17.5); IMMATURE GRANULOCYTES 0.3 % (0-5); LYMPHOCYTES 15.4 % (15-50); MCHC 34.3 g/dL (31.0-37.0); MCV 78.7 fL (80.0-100.0); MEAN PLATELET VOLUME 9.8 fL (7.4-10.4); MONOCYTES 9.9 % (2-11); NEUTROPHILS 70.3 % (40-80); PLATELET COUNT 327 10x3/uL (130-400); RBC 4.56 10x6/uL (4.20-6.10); RDW 14.6 % (11.5-14.5)
[2018-11-14 10:02] LABS: ANION GAP 14.6 mmol/L (8-16); CALCIUM 8.5 mg/dL (8.5-10.1); CARBON DIOXIDE 25.2 mmol/L (21.0-32.0); CHOL - HDL RATIO 3.8 ratio (2.3-4.9); CREATININE - SERUM 1.1 mg/dL (0.6-1.3); LDL-HDL RATIO 2.1 ratio (1.5-3.5); POTASSIUM - SERUM 3.8 mmol/L (3.5-5.1)
--- NOTE | 2018-11-14 11:19 | HP ---
PATIENT: ALONDRA DEXTER MEDICAL RECORD: [id number] ACCOUNT: [id number] LOCATION:[place] : [birth year] ADMISSION DATE: 11/14/18 PCP: DOCTOR NEY HISTORY AND PHYSICAL EXAMINATION ADMITTING DIAGNOSES: 1. Coronary artery disease. 2. Recent inferolateral myocardial infarction with percutaneous transluminal coronary angioplasty stent circumflex, has concomitant disease of left anterior descending diagonal. 3. Hypertension. 4. Hyperlipidemia. HISTORY OF PRESENT ILLNESS: Mr. Dexter presents last week with an acute inferolateral myocardial infarction, underwent successful PTCA stent of the left circumflex. He has critical disease of very large LAD diagonal, is now brought back for PTCA stent of this territory. PHYSICAL EXAMINATION: CONSTITUTIONAL/GENERAL APPEARANCE: Well nourished, well developed, appears stated age. EYES: Lids and conjunctivae noninjected. No discharge. No pallor. ENT: Lips within normal limit. No cyanosis. No pallor. NECK: Carotid arteries, bilateral normal upstroke. No bruits. No thrills. No jugular venous pressure or distention. CERVICAL LYMPH NODES: Nontender. Nonenlarged. THYROID: Not enlarged. No nodules. CARDIOVASCULAR: Precordial exam, nondisplaced. No heaves or pericardial thrills. Rate and rhythm, regular. Heart sounds, normal S1, normal S2. No S3, no gallop, no rub. Systolic murmur, not heard. Diastolic murmur, not heard. RESPIRATORY: Respiratory effort, unlabored. Normal curvature. No thoracic deformity. No chest wall tenderness. Percussion, resonant. Auscultation, clear. No wheezes, no rales, no rhonchi. ABDOMEN: Soft, nondistended, nontender. No abdominal pain, no vomiting and normal appetite. MUSCULOSKELETAL: No joint tenderness, normal gait, normal tone. SKIN: Warm and dry. OVERALL IMPRESSION: Coronary artery disease, critical disease left anterior descending diagonal. We will proceed with transcatheter revascularization of this territory. TRANSINT:[id number] Voice Confirmation ID: [id number] DOCUMENT ID: [id number] NILS STANTON MD at 1119 CC: [id number] DICTATION DATE: 11/14/18 1104 MUSIC THEORY TEACHER: 11/14/18 1112 [place] [id number] [place] [address]
--- NOTE | 2018-11-14 11:32 | NUR ---
PT ARRIVED BY STRETCHER. PLACED ON MONITORS. ASSESSMENT COMPLETED. VSS. CALL LIGHT WITHIN REACH. NO FAMILY AT THIS TIME.
--- NOTE | 2018-11-14 11:47 | NUR ---
PT RESTING COMFORTABLY. VSS. RIGHT RADIAL TR BAND IN PLACE. NO BLEEDING/HEMATOMA NOTED.
--- NOTE | 2018-11-14 12:15 | NUR ---
FAMILY NOW AT BEDSIDE. UPDATED ON PT'S STATUS. PT STILL DROWSY. VSS. RIGHT RADIAL TR BAND IN PLACE. NO BLEEDING/HEMATOMA NOTED.
--- NOTE | 2018-11-14 12:45 | NUR ---
RIGHT RADIAL TR BAND IN PLACE. NO BLEEDING/HEMATOMA NOTED. CALL LIGHT WITHIN REACH. VSS. FAMILY AT BEDSIDE.
--- NOTE | 2018-11-14 13:02 | NUR ---
DR. STANTON ROUNDED AND SPOKE WITH PT AND PT'S FAMILY.
--- NOTE | 2018-11-14 13:47 | NUR ---
PT'S HEAD OF BED INC TO 30 DEGREES. TOLERATED WELL. VSS. CALL LIGHT WITHIN REACH. SET UP WITH SANDWICH TRAY AND DRINK. DENIES NAUSEA. RIGHT RADIAL TR BAND IN PLACE. NO BLEEDING/HEMATOMA NOTED. WILL CONTINUE TO MONITOR.
--- NOTE | 2018-11-14 14:30 | NUR ---
3cc OF AIR REMOVED FROM TR BAND. TOLERATING WELL. VSS. FAMILY AT BEDSIDE. CALL LIGHT WITHIN REACH. NO NEEDS AT THIS TIME.
--- NOTE | 2018-11-14 14:45 | NUR ---
3cc OF AIR REMOVED FROM TR BAND. NO BLEEDING/HEMATOMA NOTED. CALL LIGHT WITHIN REACH. FAMILY AT BEDSIDE. NO OTHER NEEDS AT THIS TIME.
--- NOTE | 2018-11-14 15:14 | NUR ---
TR BAND OFF. DRESSING APPLIED. NO BLEEDING/HEMATOMA NOTED. PIV D/C'D WITH CATH TIP INTACT. TOLERATED WELL. FAMILY AT BEDSIDE. PT VOIDED IN URINAL WITHOUT DIFFICULTY. PT'S FAMILY AT BEDSIDE TO ASSIST WITH HIM GETTING DRESSED. NO ASSISTANCE NEEDED AT THIS TIME. CALL LIGHT WITHIN REACH.
--- NOTE | 2018-11-14 15:20 | NUR ---
DISCUSSED DISCHARGE INSTRUCTIONS WITH PT AND PT'S FAMILY. THEY VOICED UNDERSTANDING.
--- NOTE | 2018-11-14 15:30 | NUR ---
RIGHT RADIAL DRESSING C/D/I. NO S/S OF HEMATOMA NOTED. PT TAKEN OUT TO VEHICLE BY WHEELCHAIR. NO S/S OF DISTRESS NOTED. ALL BELONGINGS AND PAPERWORK IN HAND.
--- NOTE | 2018-11-17 10:47 | OP ---
PATIENT NAME: ALONDRA DEXTER MEDICAL RECORD: [id number] :34 LOCATION:D.CAT ADMISSION DATE: SURGEON: NILS STANTON MD DATE OF OPERATION: 11/14/2018 DATE OF SERVICE: 11/14/2018 PROCEDURES: 1. PTCA stent LAD diagonal. 2. Selective coronary angiography. DESCRIPTION OF PROCEDURE: After informed consent was obtained and after a detailed description of risks, benefits as well as alternative therapies, the patient elected to proceed with angiogram and angioplasty. The right radial area was prepped and draped in normal sterile fashion. Right radial artery was cannulated via modified Seldinger technique with placement of 6-Pashto sheath. All catheters exchanged through this sheath. FINDINGS: The left anterior descending diagonal has a 90+ percent stenosis in the proximal aspect of this vessel. This was addressed with a 2.5 x 15 mm Cobra stent. Result was 0% residual stenosis. OVERALL IMPRESSION: Successful percutaneous transluminal coronary angioplasty stent of the left anterior descending diagonal going from 90% to 95% initial stenosis to 0% residual. TRANSINT:[id number] Voice Confirmation ID: [id number] DOCUMENT ID: [id number] NILS STANTON MD at 1047 CC: [id number] DICTATION DATE: 11/14/18 1122 SUCTION OPERATOR: 11/14/18 1128 [facility] CLI 11/14/[address] [address]
== END 2018-11-14 15:30 | disposition home or self-care (01) ==
LOC: D.CATH 08:43
PROVIDERS: ATTEND Internal Medicine Interventional Cardiology
DX: I25.119 Atherosclerotic heart disease of native coronary artery with unspecified angina pectoris (principal); Z01.812 Encounter for preprocedural laboratory examination

== ENCOUNTER 2018-11-20 01:36 | Inpatient (IN) | payer MEDICARE, OTHER ==
[~2018-11-20] VITALS: Ht 175.3 cm; Wt 91.1 kg
--- NOTE | ~2018-11-20 | HEMODYNAMI ---
PATIENT:ALONDRA DEXTER MEDICAL RECORD: [id number] : 34 LOCATION:[place] [address] ADMISSION DATE: 11/20/18 Generatedon:11/24/201810:37 Patient name: ALONDRA DEXTER Patient #: [id number] SSN: [id number] : 1930 Date of study: 11/24/2018 Page: Of Hemodynamic Procedure Report Patient Data Patient Demographics Procedure consent was obtained First Name: ALONDRA Gender: Male Last Name: ISACC : 1930 [facility] Initial: LUIS EDUARDO Age: 88 year(s) Patient #: [id number] Race: SSN: [id number] Additional ID: [id number] Contact details [address]: [address] [place] [address] State: [place] City: [place] Zip code: [address] Past Medical History Allergies Allergen Reaction Date Comments Reported Other allergy 11/14/2018 PCN, PLAVIX Other allergy 11/24/2018 PCN, PLAVIX Admission Admission Data Admission Date: 11/20/2018 Admission Time: 13:30 Room #: 2121 Insurance Payor: Medicare [facility] #: [id number] Height (in.): 68.9 BSA: 2.07 (m2) Height (cm.): 175 BMI: 29.71 (kg/m2) Weight (lbs.): 200.62 Weight (kg.): 91 Lab Results Lab Result Date: 11/24/2018 Lab Result Time: 0:00 Biochemistry Name Units Result Min Max BUN mg/dl 20 --(----)*- 7 18 Creatinine mg/dl 1 --(--*-)-- 0.6 1.3 eGFR ml/min 75 *-(----)-- 90 120 NONAFRICAN CBC Name Units Result Min Max Hematocrit % 29.9 *-(----)-- 42 54 Hemoglobin g/dl 10.3 *-(----)-- 13.5 17.5 Procedure Procedure Types Cath Procedure Diagnostic Procedure [facility] w/Coronaries FFR/IVUS FFR Initial FFR Additional Sedation Charges Moderate Sedation up to 15 minutes PCI Procedure Coronary Stent Coronary Stent Initial Procedure Description Procedure Date Procedure Date: 11/24/2018 Procedure Start Time: 10:09 Procedure End Time: 10:33 Procedure Staff Name Function Alexsander Rivera MD Performing Physician Lazaro Foster RN Nurse Angela Chacon RT Scrub Kymberly Martinez RT Monitor Real Amanda RT Scrub Procedure Data Cath Procedure Fluoroscopy Diagnostic fluoroscopy Total fluoroscopy Time: 5.7 time: 5.7 min min Diagnostic fluoroscopy Total fluoroscopy dose: 647 dose: 647 mGy mGy Contrast Material Contrast Material Type Amount (ml) Isovue 300 109 Entry Location Entry Primary Successful Side Size Upsize Upsize Entry Closure Succes sful Closure Location (Fr) 1 (Fr) 2 (Fr) Remarks Device Remarks Femoral Right 5 Fr 6 Fr Exoseal artery Short Estimated blood loss: 10 ml Diagnostic catheters Device Type Used For End Catheter Placement MULTIPACK Pigtail 5 Fr Procedure catheter MULTIPACK JL 4.0 5Fr Procedure catheter MULTIPACK 3DRC 5Fr Procedure catheter Procedure Complications No complications Procedure Medications Medication Administration Route Dosage Oxygen etCO2 Nasal cannula 2 l/min Lidocaine 2% added to field 20 Heparin Flush Bag added to field 2 bags (1000units/500ml NS) 0.9% NaCl I.V. 100 ml/hr Heparin Bolus I.V. 4000 units Versed I.V. 1 mg Fentanyl I.V. 50 mcg Fentanyl I.V. 50 mcg Zofran I.V. 4 mg Hemodynamics Rest BSA: 2.07 (m2) HGB: 10.3 (g/dl) O2 Consumption: Estimated: 241.4 (ml/min) O2 Con sumption indexed: Estimated:116.62 (ml/min/m) Heart Rate: 79 (bpm) Snapshots Pre Cath Intra NCS Post Cath Vital Signs Time Heart Resp SPO2 etCO2 NIBP (mmHg) Rhythm Pain Sedation Rate (ipm) (%) (mmHg) Status Level (bpm) 9:59:57 75 16 99 19.5 134/78(113) NSR 0 (11) 10(A) , No pain 10:04:13 83 22 98 6.7 125/72(97) NSR 0 (11) 10(A) , No pain 10:08:29 66 13 97 24 114/64(94) NSR 0 (11) 10(A) , No pain 10:12:43 64 13 94 27 109/61(89) NSR 0 (11) 9(A) , No pain 10:16:55 67 14 93 21 111/60(87) NSR 0 (11) 9(A) , No pain 10:21:04 67 17 94 18.8 98/63(86) NSR 0 (11) 9(A) , No pain 10:25:12 64 15 92 22.5 109/64(99) NSR 0 (11) 9(A) , No pain 10:29:26 67 17 93 11.2 116/61(82) NSR 0 (11) 9(A) , No pain 10:33:38 70 15 94 0 120/73(101) NSR 0 (11) 10(A) , No pain Medications Time Medication Route Dose Verified Delivered Reason Notes Effectiveness by by 10:04:44 Zofran I.V. 4 mg Alexsander Pereiraie Per physician pt fernandez d Nicole Foster RN nausea and vomiting after previous procedure. 10:05:07 Oxygen etCO2 2 Alexsander Randallie used for Nasal l/min Nicole Foster RN procedure cannula 10:05:14 Lidocaine 2% added 20ml Alexsander Alexsander for local to vial Nicole Rivera MD anesthetic field 10:05:20 Heparin Flush added 2 Alexsander Alexsander used for Bag to bags Nicole Rivera MD procedure (1000units/500ml field NS) 10:05:29 0.9% NaCl I.V. 100 Alexsander Buffie Per physician ml/hr Nicole Foster RN 10:06:25 Versed I.V. 1 mg Alexsander Pereiraie for sedation Nicole Foster RN 10:06:31 Fentanyl I.V. 50 Alexsander Buffie for sedation mcg Nicole Foster RN 10:12:44 Fentanyl I.V. 50 Alexsander Pereiraie for sedation mcg Nicole Foster RN 10:17:13 Heparin Bolus I.V. 4000 Alexsanderkinga Pereiraie for verif ied units Nicole Foster RN anticoagulation with dr rivera Procedure Log Time Note 9:25:48 Procedure Status Urgent Heart Cath (IP). 9:25:50 Time tracking: Regular hours (M-F 7:00 - 5:00) 9:25:58 Plan of Care:Hemodynamics will remain stable., Cardiac rhythm will remain stable., Comfort level will be maintained., Respiratory function will remain adequate., Patient/ family verbilizes understanding of procedure., Procedure tolerated without complication., Recovers from procedure without complications.. 9:26:04 Signed procedure consent form obtained from patient. 9:27:05 Patient allergic to Other allergyPCN, PLAVIX 9:: Lab Result : BUN 20 mg/dl :: Lab Result : Creatinine 1 mg/dl :: Lab Result : eGFR NONAFRICAN 75 ml/min 9:: Lab Result : Hematocrit 29.9 % 9:: Lab Result : Hemoglobin 10.3 g/dl 9:28:35 Patient Weight : 200.62 lbs 9:28:39 Patient Height : 68.9 inches 9:29:18 Insurance Payor : Medicare 9:29:32 Procedure type changed to Cath procedure, Diagnostic procedure, LHC, LHC w/Coronaries, FFR/IVUS, FFR Initial, FFR Additional, Sedation Charges, Moderate Sedation up to 15 minutes, PCI procedure, Coronary Stent, Coronary Stent Initial 9:29:35 Diagnostic Cath Status : Urgent 9:29:36 PCI Cath Status : Urgent 9:33:23 Lazaro Foster RN sent for patient. Start room use. 9:53:07 Patient received from Med II to CCL 1 Alert and oriented. Tansferred to table in Supine position. 9:53:08 Warm blankets applied, and terra hugger turned on for patient comfort. 9:53:09 Correct patient and procedure confirmed by team. 9:53:10 ECG and BP/O2 sat monitors applied to patient. 9:58:49 Vital chart was started 9:58:51 Baseline sample Acquired. 10:00:25 Rhythm: sinus rhythm 10:00:27 Full Disclosure recording started 10:00:34 H&P Date Dictated: 11/24/2018 Within 30 days and on chart.. 10:00:35 Pre-procedure instructions explained to patient. 10:00:36 Pre-op teaching completed and patient verbalized understanding. 10:00:38 Family in patients room. 10:00:40 Patient NPO since Midnight. 10:00:41 Is the patient allergic to Iodine/contrast media? No. 10:00:42 Is patient on blood thinner?Yes 10:00:45 ACC The patient was administered the following blood thiners within the last 24 hours: ACCAspirin, ACCEffient 10:00:48 Patient diabetic? No. 10:00:51 Previous problem with sedation/anesthesia? No ? 10:00:52 Snore? No 10:00:53 Sleep apnea? No 10:00:54 Deviated septum? No 10:00:54 Opens mouth fully? Yes 10:00:55 Sticks out tongue? Yes 10:00:57 Airway obstruction? No ? 10:01:02 Dentures? Yes out 10:01:06 Pre procedure: right dorsailis pedis pulse 2+ Normal; easily identifiable; not easily obliterated 10:01:08 Patient pain scale 0/10 ?. 10:01:14 IV patent on arrival in right wrist with 0.9% NaCl at KVO. 10:01:17 Lab results completed and on chart. 10:01:19 Right groin area was prepped with chlora-prep and draped in sterile fashion 10:01:19 Alarms reviewed by R. N. 10:01:20 Sharps counted by scrub and verified by R.N. 10:01:22 Use device set Femoral Dx 10:01:23 ACIST Syringe (64421) opened to sterile field. 10:01:23 Bag Decanter (2002S) opened to sterile field. 10:01:23 Medline Cath Pack ([id number]) opened to sterile field. 10:01:25 ACIST Hand Control (28363) opened to sterile field. 10:01:25 ACIST Manifold (13223) opened to sterile field. 10:01:26 Tegaderm 4 x 4 (1626W) opened to sterile field. 10:01:27 EMERALD Guide Wire (527-020) opened to sterile field. 10:01:29 DIAGNOSTIC Multipack 5Fr catheter set ([id number]) opened to sterile field. 10:01:31 SHEATH 5FR Horse Shoe (PZT196) opened to sterile field. 10:02:35 Physician arrived 10:02:35 --------ALL STOP TIME OUT------ 10:02:36 Final Timeout: patient, procedure, and site verified with staff and physician. All members of the team are in agreement. 10:02:37 Right groin site verified by team. 10:02:41 Fire Safety Assessment: A--An alcohol-based skin anteseptic being used preoperatively., C--Open oxygen or nitrous oxide is being used., D--An ESU, laser, or fiber-optic light is being used. 10:02:43 Physical assessment completed. ASA score P 2 - A patient with mild systemic disease as per Alexsander Rivera MD. 10:03:10 2) 60-89 Mildly reduced kidney function, and other findings (as for stage 1) point to kidney disease. 10:03:35 Maximum allowable contrast dose (3.7 X eGFR X 0.75)208 ml. 10:03:38 Sedation plan: IV Moderate Sedation Medication:Versed, Fentanyl 10:04:44 Zofran 4 mg I.V. was administered by Lazaro Foster RN; Per physician; pt had nausea and vomiting after previous procedure. 10:05:07 Oxygen 2 l/min etCO2 Nasal cannula was administered by Lazaro Foster RN; used for procedure; 10:05:14 Lidocaine 2% 20ml vial added to field was administered by Alexsander Rivera MD; for local anesthetic; 10:05:20 Heparin Flush Bag (1000units/500ml NS) 2 bags added to field was administered by Alexsander Rivera MD; used for procedure; 10:05:29 0.9% NaCl 100 ml/hr I.V. was administered by Lazaro Foster RN; Per physician; 10:06:25 Versed 1 mg I.V. was administered by Lazaro Foster RN; for sedation; 10:06:31 Fentanyl 50 mcg I.V. was administered by Lazaro Foster RN; for sedation; 10:09:14 Procedure started. 10:09:26 Local anesthetic to right femoral artery with Lidocaine 2% by Alexsander Rivera MD.INITIAL ACCESS ONLY 10::32 A 5 Fr sheath was inserted into the Right Femoral artery 10:09:47 IV IN RIGHT WRIST. 10:09:50 Zero performed for pressure channel P1 10:10:32 A MULTIPACK Pigtail 5 Fr catheter was advanced over the wire and used for Procedure. 10:10:39 LV gram done using JASMINE 10::42 Injector settings: Ml/sec: 10, Volume: 20, 10:11:02 EF : 15 % 10:11:04 Catheter removed. 10:11:17 A MULTIPACK JL 4.0 5Fr catheter was advanced over the wire and used for Procedure. 10:12:44 Fentanyl 50 mcg I.V. was administered by Lazaro Foster RN; for sedation; 10:13:07 LCA angiography performed. 10:13:08 Catheter removed. 10:13:12 A MULTIPACK 3DRC 5Fr catheter was advanced over the wire and used for Procedure. 10:13:57 RCA angiography performed. 10:13:58 Catheter removed. 10:14:24 SHEATH 6FR Horse Shoe (AZX547) opened to sterile field. 10:14:24 [place] Verrata Plus pressure wire (64406A) opened to sterile field. 10:14:25 CHOICE PT Extra Support 182cm wire ([id number]) opened to sterile field. 10:14:31 Sheath upsized to a 6 Fr Short. 10:15:38 GUIDE 6FR HS I catheter (LA6HSI) opened to sterile field. 10:15:43 GUIDE 6FR XBLAD 3.5 catheter ([id number]) opened to sterile field. 10:16:16 6 Fr XBLAD 3.5 guide catheter was inserted over the wire 10:17:13 Heparin Bolus 4000 units I.V. was administered by Lazaro Foster RN; for anticoagulation; verified with dr rivera 10:20:30 FFR/IFR wire advanced. 10:20:32 Wire advanced across lesion. 10:22:05 mCirc lesion measured at 1.02 with IFR 10:23:09 WIRE REDIRECTED TO THE LAD 10:23:23 mLAD lesion measured at .94 with IFR 10:23:33 Wire removed. 10:23:40 Guide catheter removed. 10:24:05 6 Fr HS 1 guide catheter was inserted over the wire 10:25:06 FFR/IFR wire advanced. 10:25:51 Wire advanced across lesion. 10:26:22 mRCA lesion measured at .74 with IFR 10:26:31 ACT drawn and resulted at 239 seconds. (normal therapeutic range 180-240 seconds). 10:28:07 Pre PCI Site: [place] mRCA has 75% stenosis. 10:29:08 Place stent Inflation Number: 1 A COBRA RX 2.5 X 30 Stent was prepped and advanced across the Mid RCA 75. The stent was deployed at 17 PIEDAD for 0:00 (min:sec) 0. 10:29:36 Stent catheter was removed intact over wire. 10::37 Wire removed. 10:29:37 Guide catheter removed. 10:29:44 EXOSEAL 6Fr (EX600) opened to sterile field. 10:30:09 Sheath removed intact; hemostasis achieved with Exoseal to the Right Femoral artery. 10:30:12 Procedure ended.(Physican Out) 10:30:35 Fluoroscopy time 05.70 minutes. 10:30:40 Flurop Dose total: 647 10:30:40 Fluoroscopy dose: 647 mGy 10:30:46 Dose Area Product 76016 mGy/cm. 10:30:49 Contrast amount:Isovue 300 109ml. 10:30:52 Maximum allowable dose exceeded? No. 10:30:53 Sharps counted by scrub and verified by R.N. 10:31:29 Post-op/insertion site Right Femoral artery dressed using a 4 x 4 and Tegaderm. 10:31:32 Post-procedure physical assessment completed. ASA score P 3 - A patient with severe systemic disease as per Alexsander Rivera MD. 10:31:35 Post procedure rhythm: sinus rhythm 10:31:38 Estimated blood loss: 10 ml 10:31:39 Post procedure instruction explained to patient.Patient verbalizes understanding. 10:31:40 Patient needs reinforcement of post procedure teaching. 10:33:15 Procedure and supply charges have been captured, reviewed, submitted and are correct. 10:33:18 Procedure Complication : No complications 10:33:21 Vital chart was stopped 10:33:21 See physician's report for complete and final results. 10:33:22 Report given to PCU. 10:33:29 Procedure ended. 10:33:29 Full Disclosure recording stopped 10:33:36 Patient transfered to PCU with Bed. 10:33:37 End room use (Document Last) Intervention Summary Intervention Notes Time ActionType Lesion and Equipment Action# Pressure Duration Attributes Used 10:29:08 Place stent Mid RCA COBRA RX 1 17 00:00 2.5 X 30 Stent Device Usage Item Name Manufacture Quantity Catalog Number Hospital Part Current Minimal Lot# / Charge Number Stock Stock Serial# Code ACIST Syringe Acist 1 71761 [id number] 139551 740056 20 (15339) Medical Systems Inc Bag Decanter Microtek 1 2001S 793461 56468 561784 5 (2001S) Medical Inc. Medline Cath Medline 1 [id number] 240487 58106 515734 5 Pack ([id number]) ACIST Hand Acist 1 53117 457765 653902 433065 5 Control Medical (61379) Systems Inc ACIST Manifold Acist 1 25990 082163 856908 314906 5 (50574) Medical Systems Inc Tegaderm 4 x 4 3M 1 1626W 923295 195358 044753 5 (1626W) EMERALD Guide Cardinal 1 502-455 572397 020203 285312 5 Wire (502-455) Health DIAGNOSTIC Cardinal 1 DJ8423 080391 40336 726322 30 Multipack 5Fr Health catheter set (FA6907) SHEATH 5FR Terumo 1 EHV752 624995 233580 314301 5 Horse Shoe (KGN354) MULTIPACK Cardinal 1 177040 5 Pigtail 5 Fr Health catheter MULTIPACK JL Cardinal 1 983979 5 4.0 5Fr Health catheter MULTIPACK 3DRC Cardinal 1 413011 5 5Fr catheter Health SHEATH 6FR Terumo 1 MBA716 187787 930215 401388 40 Horse Shoe (OCV131) [place]ob[place] Rehoboth 1 30274T 092353 399028905 497290 5 Verrata Plus pressure wire (17376H) CHOICE PT [place] 1 [id number] 999510 016359 798678 5 Extra Support Scientific 182cm wire ([id number]) GUIDE 6FR HS I Medtronic 1 LA6HSI 125219 66255 656784 1 catheter (LA6HSI) GUIDE 6FR Cardinal 1 [id number] 198317 568783 127754 10 XBLAD 3.5 Health catheter (05649512) COBRA RX 2.5 X Celonova 1 192459 [id number] 138698 0 [id number] 30 stent Biosciences () EXOSEAL 6Fr Cardinal 1 EX600 780872 518135 157538 10 (EX600) [employer] Signature Audit [place] Stage Time Signature Unsigned Intra-Procedure 11/24/2018 Kymberly Martinez 10:36:59 AM RT(R) Signatures Performing Physician : Signature : Alexsander Rivera MD Date : Time : Nurse : Buffie Foster RN Signature : Date : Time : Monitor : Kymberly Martinez Signature : RT Date : Time : [place] [address] [place] [address]
[2018-11-20 02:28] LABS: HEMATOCRIT 36.7 % (42.0-54.0); HEMOGLOBIN 12.7 g/dL (13.5-17.5); MCH 27.7 pg (26.0-34.0); MCHC 34.6 g/dL (31.0-37.0); MEAN PLATELET VOLUME 9.4 fL (7.4-10.4); PLATELET COUNT 358 10x3/uL (130-400); RBC 4.59 10x6/uL (4.20-6.10); RDW 14.8 % (11.5-14.5); WBC 25.2 10x3/uL (4.8-10.8)
[2018-11-20 02:30] VITALS: BP 107/49
[2018-11-20 02:31] LABS: APTT 28.1 SECONDS (22.8-39.4); INR 1.17 (0.85-1.17); PROTIME 14.4 SECONDS (11.6-15.0)
[2018-11-20 02:33] LABS: ALBUMIN 3.1 g/dL (3.4-5.0); ALKALINE PHOSPHATASE 94 U/L (46-116); ALT (SGPT) 15 U/L (10-68); BILIRUBIN - TOTAL 0.85 mg/dL (0.2-1.3); CALC OSMOLALITY 270 mosm/kg (275-300); CALCIUM 7.9 mg/dL (8.5-10.1); CARBON DIOXIDE 23.5 mmol/L (21.0-32.0); CHLORIDE - SERUM 95 mmol/L (98-107); CREATININE - SERUM 1.2 mg/dL (0.6-1.3); POTASSIUM - SERUM 4.1 mmol/L (3.5-5.1); PROTEIN - SERUM 7.3 g/dL (6.4-8.2); SODIUM 130 mmol/L (136-145); UREA NITROGEN 16 mg/dL (7-18); eGFR NON AFRICAN AMERICAN 61 mL/min (90-120)
[2018-11-20 02:34] LABS: GLUCOSE 254 mg/dL (74-106)
[2018-11-20 02:47] LABS: CKMB 1.2 U/L (0.0-3.6); CREATINE KINASE 40 UL (21-232); MAGNESIUM - SERUM 1.3 mg/dL (1.8-2.4); PRO BNP 4722 pg/mL (0-450)
[2018-11-20 02:50] LABS: TROPONIN-I 0.583 ng/mL (0.000-0.060)
[2018-11-20 02:54] LABS: EOSINOPHILS 2 % (0-7); LYMPHOCYTES 4 % (15-50); MONOCYTES 4 % (2-11); NEUTROPHILS 86 % (40-80); PLATELET ESTIMATE NORMAL
[2018-11-20 04:18] VITALS: BP 120/64; BMI 29.8
--- NOTE | 2018-11-20 07:31 | NUR ---
PT RESTING COMFORTABLY IN BED WITH EYES CLOSED, RESP EVEN AND NONLABORD ON 2L NC. RT FA AND LT HAND IV BOTH SL. MONITOR SHOWING SR 78. CALL LIGHT IN REACH, BEDSIDE RAILS X2, AT BEDSIDE, NAD NOTED,W ILL CONTINUE PLAN OF CARE.
[2018-11-20 08:42] LABS: CREATINE KINASE 27 UL (21-232)
[2018-11-20 08:44] LABS: TROPONIN-I 0.341 ng/mL (0.000-0.060)
[2018-11-20 09:19] VITALS: BP 106/61
[2018-11-20 10:26] VITALS: Ht 175.3 cm; Wt 91.1 kg
--- NOTE | 2018-11-20 13:01 | NUR ---
PT RESTING COMFORTABLY IN BED, DENIES ANY NEEDS AT THIS TIME. SCDS ON BILAT. BEDSIDE RAILS X2, CALL LIGHT IN REACH, SPOUSE AT BEDSIDE, NAD NOTED, WILL CONTINUE TO MONITOR.
[2018-11-20 13:28] VITALS: BP 117/65
--- NOTE | 2018-11-20 17:30 | NUR ---
CALLED RADIOLOGY RESIDENT ANDREA, INFORMED HER THAT I NEED DOXY AND SOLU MEDROL FOR PT THAT HAS NOT BEEN VERIFIED BY PHARMACY.
--- NOTE | 2018-11-20 19:13 | NUR ---
RECIEVED BEDSIDE REPORT. UP IN BED WITH EYES OPEN AND SPOUSE AT BEDSIDE. HOB ELEVATED . O2@2 LITERS PER NC IN PLACE. IV TO RIGHT FA SL.. TELEMETRY IN PLACE. VERY [place] BAND AND SPOUSE IS ALSO [place] BAND. EDUCATED ON NPO STATUS AT [place]. DENIES ANY NEEDS AT THIS TIME. WILL CONT POC.
[2018-11-20 20:00] VITALS: BP 137/61
[2018-11-21 00:01] VITALS: BP 115/60
[2018-11-21 04:00] VITALS: BP 117/61
[2018-11-21 05:24] LABS: BASOPHILS 0.1 % (0-2); EOSINOPHILS 1.7 % (0-7); HEMATOCRIT 32.7 % (42.0-54.0); HEMOGLOBIN 11.1 g/dL (13.5-17.5); IMMATURE GRANULOCYTES 0.2 % (0-5); LYMPHOCYTES 11.5 % (15-50); MCH 26.8 pg (26.0-34.0); MCHC 33.9 g/dL (31.0-37.0); MEAN PLATELET VOLUME 9.4 fL (7.4-10.4); MONOCYTES 9.7 % (2-11); NEUTROPHILS 76.8 % (40-80); PLATELET COUNT 346 10x3/uL (130-400); RBC 4.14 10x6/uL (4.20-6.10); RDW 14.9 % (11.5-14.5)
[2018-11-21 05:37] LABS: WBC 14.6 10x3/uL (4.8-10.8)
[2018-11-21 05:44] LABS: ALBUMIN 2.7 g/dL (3.4-5.0); ANION GAP 12.4 mmol/L (8-16); BILIRUBIN - TOTAL 0.66 mg/dL (0.2-1.3); CALCIUM 8.1 mg/dL (8.5-10.1); CARBON DIOXIDE 28.2 mmol/L (21.0-32.0); CREATININE - SERUM 1.2 mg/dL (0.6-1.3); MAGNESIUM - SERUM 1.3 mg/dL (1.8-2.4); POTASSIUM - SERUM 4.6 mmol/L (3.5-5.1); PROTEIN - SERUM 6.5 g/dL (6.4-8.2)
--- NOTE | 2018-11-21 07:17 | NUR ---
AM ROUNDS- PT A/O X4, A LITTLE SOB ON 2L, INSTRUCTED PT TO TAKE IN DEEP BREATHS, PT A LITTLE UPSET, STATES THAT HE IS TIRED OF BEING HERE, TIRED OF GETTING TEST AFTER TEST DONE AND STILL NO ANSWER OF WHATS GOING ON WITH HIM. PT DENIES ANY PAIN AND STATES THAT HE FEELS BETTER AND THIS IS HIS NORMAL. LT HAND AND RT FA IV SL. MONITOR SHOWING SR WITH RATE OF 80. SPOUSE AT BEDSIDE, CALL LIGHT IN REACH, NAD NOTED,W ILL CONTINUE TO MONITOR.
[2018-11-21 09:04] LABS: APPEARANCE CLEAR (CLEAR); BILIRUBIN NEGATIVE (NEGATIVE); COLOR YELLOW (YELLOW); GLUCOSE NEGATIVE (NEGATIVE); KETONE NEGATIVE (NEGATIVE); NITRITE NEGATIVE (NEGATIVE); PROTEIN 1+ mg/dL (NEGATIVE); UROBILINOGEN NORMAL (NORMAL); WHITE CELLS - URINE 0-5 /hpf (0-5)
[2018-11-21 09:05] LABS: BACTERIA FEW /hpf (NONE SEEN)
--- NOTE | 2018-11-21 09:35 | NUR ---
AM MEDS GIVEN AT THIS TIME. PT EATING BREAKFAST, DENIES ANY NEEDS AT THIS TIME. CALL LIGHT IN REACH, NAD NOTED, WILL CONTINUE TO MONITOR.
[2018-11-21 09:47] VITALS: BP 122/62
--- NOTE | 2018-11-21 11:09 | NUR ---
CALLED RADIOLOGY AND ASKED THEM IF THEY CAN PROVIDED ME WITH THE RESULTS OF CTA OF CHEST DONE ON 11/19/18. WAS INFORMED THAT PT NEVER HAD CTA DONE HERE. WILL NOTIFY DR. BRASHER.
--- NOTE | 2018-11-21 11:30 | NUR ---
BLOOD SUGRA OF 344, 8UNITS GIVEN PER S/S. PT RESTING COMFORTABLY IN BED, DENIES ANY NEEDS AT THIS TIME. CALL LIGHT IN REACH, SPOUSE AT BEDSIDE, NAD NOTED, WILL CONTINUE TO MONITOR.
[2018-11-21 12:34] VITALS: BP 125/62
--- NOTE | 2018-11-21 12:43 | NUR ---
OT NOTE: PT PERFORMED BED MOB WITH MIN ASSIST; ABLE TO AMB WITH WALKER, 02, AND MIN ASSIST X 50+ FT. AMB TO BATHROOM WITH WALKER AND MIN ASSIST; TOILETING WITH MIN ASSIST; SIMPLE GROOMING WITH SET UP. JOSEPH GALICIA, OTR/L
--- NOTE | 2018-11-21 16:40 | NUR ---
BLOOD SUGAR OF 293, 6UNITS INSULIN GIVEN PER S/S. IVPB DOXY HUNG AT THIS TIME, PT DENIES ANY NEEDS AT THIS TIME. CALL LIGHT IN REACH, NAD NOTED,W ILL CONTINUE TO MONITOR.
--- NOTE | 2018-11-21 16:51 | NUR ---
OT NOTE: PT COMPLETED BED MOB TASKS WITH MIN A. PT COMPLETED HYGIENE TASKS WITH MOD A. THANK YOU, ARIES GONZALES
--- NOTE | 2018-11-21 19:05 | NUR ---
EVENING ROUNDS COMPLETE, PT SITTING UP IN BED. NO C/O PAIN, NO SIGNS OF DISTRESS. CL IN REACH, BED IN LOWEST POSITION. CONT WITH POC.
[2018-11-21 20:00] VITALS: BP 115/66
[2018-11-22 00:41] VITALS: BP 119/68
--- NOTE | 2018-11-22 02:29 | NUR ---
REMOVED PT IV IN L WRIST DUE TO INFILTRATION, CATH TIP INTACT, PT TOLERATED WELL. REMOVED PT IV IN RFA DUE TO INFILTRATION, CATH TIP INTACT, PT TOLERATED WELL. NEW IV STARTED IN PT L HAND, FLUSHED WELL, ANTIBIOTICS STARTED. PT DENIES ANY PAIN AT THIS TIME. CL IN REACH, BED IN LOWEST POSITION. CONT WITH POC.
[2018-11-22 04:00] VITALS: BP 134/81
[2018-11-22 05:48] LABS: BASOPHILS 0.1 % (0-2); EOSINOPHILS 0 % (0-7); HEMATOCRIT 30.2 % (42.0-54.0); HEMOGLOBIN 10.3 g/dL (13.5-17.5); IMMATURE GRANULOCYTES 0.3 % (0-5); LYMPHOCYTES 5.5 % (15-50); MCH 26.8 pg (26.0-34.0); MCHC 34.1 g/dL (31.0-37.0); MCV 78.6 fL (80.0-100.0); MEAN PLATELET VOLUME 9.7 fL (7.4-10.4); MONOCYTES 3.4 % (2-11); NEUTROPHILS 90.7 % (40-80); PLATELET COUNT 371 10x3/uL (130-400); RBC 3.84 10x6/uL (4.20-6.10); RDW 14.8 % (11.5-14.5)
[2018-11-22 06:04] LABS: ALBUMIN 2.4 g/dL (3.4-5.0); ALKALINE PHOSPHATASE 92 U/L (46-116); CARBON DIOXIDE 25.2 mmol/L (21.0-32.0); CHLORIDE - SERUM 92 mmol/L (98-107); MAGNESIUM - SERUM 1.7 mg/dL (1.8-2.4); PROTEIN - SERUM 7.1 g/dL (6.4-8.2); SODIUM 126 mmol/L (136-145); UREA NITROGEN 16 mg/dL (7-18); eGFR NON AFRICAN AMERICAN 75 mL/min (90-120)
[2018-11-22 06:05] LABS: ALT (SGPT) 10 U/L (10-68); CALC OSMOLALITY 261 mosm/kg (275-300); GLUCOSE 237 mg/dL (74-106); POTASSIUM - SERUM 3.9 mmol/L (3.5-5.1)
[2018-11-22 08:20] VITALS: BP 124/62
--- NOTE | 2018-11-22 10:27 | NUR ---
HELPED PT BACK TO BED, PT HAS OPEN SORE ON HIS BOTTOM, APPLIED BUTT CREAM. INFORMED PT THAT HE NEEDS TO STAY OFF HIS BOTOM AND THEREFORE NEEDS TO BE TURNED EVERY 2HRS. PT AND SPOUSE VERBALIZED UNDERSTANDING BUT REFUSED FOR THIS NURSE TO TURN HIM. PT STATED " I AM COMFORTABLE RIGHT NOW" REINFORCE THE IMPORTANCE OF KEEPING HIM OFF HIS BOTTOM. PT STATED MAYBE LATER I WILL LET YOU TURN ME."
[2018-11-22 11:38] VITALS: BP 120/73
--- NOTE | 2018-11-22 12:01 | NUR ---
Nutrition Follow-up: Tolerating PO intake. Pt reports that he typically does not eat much. Per ST, ok for solids/thin liquids. Diet: Cardiac Diabetic PO intake: 56% avg x 4 meals Wt: 197# Last BM: 11/22 (small) Labs noted: Glu 237, Mg 1.7 Meds noted: MagOx, Humulin Continue current diet as tolerated. +Glucerna 1/day. [place] food preferences within diet restrictions. RD following.
--- NOTE | 2018-11-22 13:53 | NUR ---
APPLIED CREAM TO PT'S BOTTOM AND REPOSITONED HIM ON HIS LEFT SIDE.
[2018-11-22 14:03] VITALS: BP 99/45
--- NOTE | 2018-11-22 15:53 | NUR ---
OT NOTE: BED MOB WITH MIN/CGA. SITTING BALANCE ON EOB WAS GOOD. UE AND LE AROM EXS X 10 REPS. MUCH IMPROVEMENT WITH SOB. PT ABLE TO PERFORM ALL EXS WITHOUT SOB. BACK TO BED WITH CGA. JOSEPH GALICIA, OTR/L
--- NOTE | 2018-11-22 16:10 | NUR ---
OT NOTE: PT COMPLETED BED MOB WITH SUPINE TO STAND REQUIRED MIN A. PT COMPLETED SIT TO STAND WITH CGA. PT COMPLETED HYGIENE TASK WITH SET UP. PT COMPLETED BUE AROM AX. PT EXHIBITED INCREASED FUNCTIONAL ACTIVITY TOLERANCE. THANK YOU, ARIES GONZALES
--- NOTE | 2018-11-22 16:30 | NUR ---
BLOOD SUGAR OF 278, 6UNITS OF INSULIN GIVEN PER S/S. ALSO HUNG IVPB DOXY. PT FIXING TO EAT DINNER, DENIES ANY NEEDS AT THIS TIME. CALL LIGHT IN ARMINDA, FAMILY AT BEDSIDE, NAD NOTED.
--- NOTE | 2018-11-22 18:50 | NUR ---
EVENING ROUNDS COMPLETE, PT LAYING IN BED, FAMILY AT BEDSIDE. NO SIGNS OF DISTRESS, PT DENIES ANY PAIN AT THIS TIME. CL IN REACH, BED IN LOWEST POSITION, CONT WITH POC.
[2018-11-22 20:00] VITALS: BP 114/60
[2018-11-23] VITALS (11 sets, daily range): BP systolic 97–111; BP diastolic 44–66
--- NOTE | 2018-11-23 04:15 | NUR ---
IV IN L HAND INFILTRATED. REMOVED IV, CATH TIP INTACT. NEW IV STARTED IN RIGHT WRIST X1 ATTEMPT. PT TOLERATED WELL. NO SIGNS OF DISTRESS. CONT WITH POC.
[2018-11-23 06:53] LABS: BASOPHILS 0 % (0-2); EOSINOPHILS 0 % (0-7); IMMATURE GRANULOCYTES 0.5 % (0-5); LYMPHOCYTES 6.9 % (15-50); MCH 26.7 pg (26.0-34.0); MCHC 34.5 g/dL (31.0-37.0); MCV 77.5 fL (80.0-100.0); MEAN PLATELET VOLUME 9.8 fL (7.4-10.4); MONOCYTES 3.9 % (2-11); NEUTROPHILS 88.7 % (40-80); PLATELET COUNT 399 10x3/uL (130-400); RBC 3.74 10x6/uL (4.20-6.10); RDW 14.4 % (11.5-14.5); WBC 17.5 10x3/uL (4.8-10.8)
[2018-11-23 07:24] LABS: ALBUMIN 2.3 g/dL (3.4-5.0); ALKALINE PHOSPHATASE 86 U/L (46-116); BILIRUBIN - TOTAL 0.38 mg/dL (0.2-1.3); CALC OSMOLALITY 258 mosm/kg (275-300); CALCIUM 7.9 mg/dL (8.5-10.1); CARBON DIOXIDE 25.1 mmol/L (21.0-32.0); CHLORIDE - SERUM 91 mmol/L (98-107); GLUCOSE 220 mg/dL (74-106); MAGNESIUM - SERUM 1.7 mg/dL (1.8-2.4); POTASSIUM - SERUM 4.2 mmol/L (3.5-5.1); PROTEIN - SERUM 6.7 g/dL (6.4-8.2); SODIUM 124 mmol/L (136-145); UREA NITROGEN 18 mg/dL (7-18); eGFR NON AFRICAN AMERICAN 75 mL/min (90-120)
[2018-11-23 07:31] LABS: ALT (SGPT) 17 U/L (10-68)
--- NOTE | 2018-11-23 09:20 | NUR ---
PT C/O CHEST PRESSURE IN THE MIDDLE OF HIS CHEST RADIATING TO HIS SHOULDER BLADES AND BACK. LINK TRAINER OPERATOR STATES PT IS SINUS RHYTHM WITH AN ELEVATED ST WAVE. STATED TO PT AND PT'S AND DAUGHTER THAT I WILL CALL DR. 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 CALLED DR. WEBER AND HE STATED "I'LL COME SEE PT SOEM TIME TODAY." AND HUNG UP THE PHONE. WENT INTO PT'S ROOM AND STATED TO PT, PT'S AND DAUGHTER THAT DR. WEBER IS GOING TO COME SEE HIM(PT) BUT HE DID NOT GIVE ME A SPECIFIC TIME TO WHEN, BUT PT IS SINUS RHYTHM ON THE MONITOR WHICH IS GOOD AND HIS HR IS STABLE. PT VERBLAIZED UNDERSTANDING, BUT DAUGHTER YELLS "ARE YOU GOING TO JUST LET HIM FUCKING ?! HE JUST HAD A HEART ATTACK!!" I STATED TO HER "I CALLED THE SEGMENT ASSEMBLER AND THAT IS WHAT HE SAID TO ME HIS HEART RATE AND RHYTHM IS STABLE WE ARE MONITORING HIM AT ALL TIMES." DAUGHTER THEN STATES "WELL WHEN HE DIES I'LL BE SURE TO PUT YOUR NAME THE CUASE OF HIS ON HIS CERTIFICATE!!" I STATED "OK." DOM CONTINUOUS DRIER OPERATOR IN THE ROOM AT THIS TIME AND STATES TO PT AND FAMILY THE SAME THING I STATED TO THEM AND CALLED NORA SILVA. FELIPE TO COME SPEAK WITH PT AND FAMILY.
--- NOTE | 2018-11-23 09:45 | NUR ---
PT STATES CHEST PAIN IS RESOLVED. BP 101/52 AND HR 70. FAMILY AT BEDSIDE. WILL CONTINUE TO MONITOR.
--- NOTE | 2018-11-23 09:58 | NUR ---
PT'S STATES HIS CHEST PAIN IS STILL "RESOLVED." BP 104/64. HR 78.
--- NOTE | 2018-11-23 11:07 | NUR ---
PT STATES HE "FEELS GOOD" AND DOES NOT HVE ANY COMPLAINTS OF CHEST PAIN. WILL CONTINUE TO MONITOR. BP 100/57. HR. 62.
--- NOTE | 2018-11-23 12:37 | NUR ---
IN ROOM WITH PT AND DR. STANTON NO FAMILY IN ROOM AT THIS TIME. PT STATED TO MD THAT HE HAD CHEST PAIN THIS MORNING BUT IT HAD GONE AWAY AND HAS NOT CAME BACK. I STATED TO DR. STANTON THAT I GAVE X1 NITRO. HE STATED TO LETS JUST WATCH IT TO SEE IF IT COMES BACK AND IF IT DOES FOR THIS NURSE TO CALL HIM AND GIVE A NITRO.
--- NOTE | 2018-11-23 13:57 | NUR ---
I have reviewed this patient and I concur with the Shift Assessment completed by the Licensed Practical Nurse today this shift.
--- NOTE | 2018-11-23 14:40 | NUR ---
SBP 99/56. NITRO SL GIVEN FOR C/O C/P. WILL MONITOR.
--- NOTE | 2018-11-23 14:42 | NUR ---
B/P 101/57. WILL CONT. PLAN OF CARE.
--- NOTE | 2018-11-23 14:47 | NUR ---
PT STATES HE IS HAVING CHEST PAIN AGAIN ANOTHER NURSE GAVE X1 NITRO AT 1436. PT STATES NOW HE STILL HAS CHEST PRESSURE SLIGHTLY. I STATED TO PT AND PT'S FAMILY I AM GOING TO CALL DR. STANTON TO SEE WHAT HE WANTS TO DO. THEY VERBALIZED UNDERSTANDING. DR. STANTON PAGED.
--- NOTE | 2018-11-23 14:51 | NUR ---
SPOKE WITH DR. STANTON HE STATES TO GIVE PT MORPHINE 2-4 Q4HP AND HE WILL GO FOR HEART CATH TOMORROW AND TO MAKE PT NPO AFTER MIDNIGHT.
--- NOTE | 2018-11-23 15:30 | NUR ---
PT STATES HIS CHEST FEELS "HEAVY" BUT IS NOT HAVING AND PRESSURE. STATED THIS TO FRANCIE DAVID AND SHE STATES SHE WILL SPEAK WITH PT AND PUT IN FURTHER ORDERS.
--- NOTE | 2018-11-23 16:05 | NUR ---
FRANCIE DAVID STATES TO ME TO HOLD COREG TONIGHT AND SHE WILL ORDER NITRO PATCH. IF PT'S BP STARTS TO DROPS UP NS FROM KVO AND ONCE IT'S RAISED BACK UP LOWER NS BACK TO KVO.
--- NOTE | 2018-11-23 17:01 | MORECARE ---
CASE MANAGEMENT DISCHARGE SUMMARY PATIENT: ALONDRA DEXTER UNIT: [id number] ADM DATE: 11/20/18 AGE: 88 : 32 SEX: M ROOM/BED: D.2109 AUTHOR: JAIDADOC PHYSICIAN: REFERRING PHYSICIAN: JUAN CARLOS KNIGHT MD DATE OF SERVICE: 11/23/18 Discharge Plan Patient Name: ALONDRA DEXTER Facility: [facility]:[place] : 1930 Planned Disposition: Home Anticipated Discharge Date: Discharge Date: Expected LOS: Initial Reviewer: [id number] Initial Review Date: 11/20/2018 Generated: 11/23/18 6:01 pm DCPIA - Discharge Planning Initial Assessment Updated by SHANDRA: Perry Mckeon on 11/23/18 4:55 pm * Is the patient Alert and Oriented? Yes * How many steps to enter\exit or inside your home? NONE * PCP DR. CELESTIN, [facility] * Pharmacy [facility] IN [place] * Preadmission Environment Home with Family * ADLs Independent * Equipment Walker * Other Equipment [place] - MEDICAL EQUIPMENT PROVIDER * List name and contact numbers for known caregivers / representatives who currently or will assist patient after discharge: PEMA DEXTER, SPOUSE, * Verbal permission to speak to the caregivers and representatives has been obtained from the patient. Yes * Community resources currently utilized Home Health * Please name any agencies selected above. [facility] * Additional services required to return to the preadmission environment? No * Can the patient safely return to the preadmission environment? Yes * Has this patient been hospitalized within the prior 30 days at any hospital? No External Providers External Provider: [facility] [place] Next Contact Date: 11/23/2018 Service Request Date: Service Type: Resolution: Reviewer: Comments: External Provider: [facility] Next Contact Date: 11/23/2018 Service Request Date: Service Type: Resolution: Reviewer: Comments: Coverage Notice Reviewer: [id number] Lita Mckeon Notice Issued Date-Time: 11/23/2018 9:15 Notice Type: Patient Choice Letter Notice Delivered To: Patient Relationship to Patient: Call Center Representative Name: Delivery Method: HAND - Hand Delivered Haylie Days: Prior Verbal Notification: Recipient Understood Notice: Yes Recipient Signature: Yes Med Rec Note Co-signed by Attending: Coverage Notice Comment: NO MEDICAL EQUIPMENT COMPANY PREFERENCE [facility] Reviewer: [id number] - Perry Mckeon Notice Issued Date-Time: 11/23/2018 9:15 Notice Type: IM Discharge Notice Notice Delivered To: Patient Relationship to Patient: Call Center Representative Name: Delivery Method: HAND - Hand Delivered Haylie Days: Prior Verbal Notification: Recipient Understood Notice: Yes Recipient Signature: Yes Med Rec Note Co-signed by Attending: Coverage Notice Comment: Patient Name: ALONDRA DEXTER Page [phone] at 1701 All edits/amendments must be made on the electronic document DICTATION DATE: 11/23/181700 COIL MACHINE OPERATOR: KARELY 11/23/181700 RPT#: [id number] DC DATE: STATUS: ADM IN [facility] [address] [place] [address] END OF REPORT
--- NOTE | 2018-11-23 17:06 | NUR ---
BP 117/60 FRANCIE DAVID STATES TO GO AHEAD AND GIVE COREG.
[2018-11-23 17:08] LABS: IMMUNOGLOBULIN E 150 IU/mL (6-495)
--- NOTE | 2018-11-23 17:11 | MORECARE ---
CASE MANAGEMENT DISCHARGE SUMMARY PATIENT: ALONDRA DEXTER UNIT: [id number] ADM DATE: 11/20/18 AGE: 88 : 32 SEX: M ROOM/BED: D.2109 AUTHOR: JAIDA,DOC PHYSICIAN: REFERRING PHYSICIAN: JUAN CARLOS KNIGHT MD DATE OF SERVICE: 11/23/18 Discharge Plan Patient Name: ALONDRA DEXTER [facility] [facility] 1930 Planned Disposition: Home Anticipated Discharge Date: Discharge Date: Expected LOS: Initial Reviewer: [id number] Initial Review Date: 11/20/2018 Generated: 11/23/18 6:10 pm Comments DCP- Discharge Planning Updated by [email or web address]: Perry Mckeon on 11/23/18 4:[address] Patient Name: ALONDRA DEXTER Admission Status: ER Accout number: [id number] Admission Date: 11-20-2018 : 1930 Admission Diagnosis: Attending: JUAN CARLOS KNIGHT Current LOS: 3 Anticipated DC Date: Planned Disposition: Home Primary Insurance: MEDICARE A & B Discharge Planning Comments: CM MET WITH PT, SPOUSE AND DAUGHTER IN ROOM TO DISCUSS DISCHARGE PLANNING AND NEEDS. ALONDRA DEXTER provided verbal consent to discuss current and ongoing needs with/in the presence of: SPOUSE AND DAUGHTER. PT REPORTS LIVING AT HOME INDEPENDENTLY WITH AND DAUGHTER. [place]. PT HAS HOME HEALTH FOR NURSING AND THERAPY WITH [facility]. CM DISCUSSED AVAILABILITY OF HOME HEALTH, REHAB SERVICES AND MEDICAL EQUIPMENT. PT DENIES DISCHARGE NEEDS OTHER THAN THE OVERNIGHT PULSE OX AND [facility] RESUMPTION, REPORTSHIS DAUGHTER WILL PICK HIM UP FOR DISCHARGE HOME. IMPORTANT MESSAGE FROM MEDICARE PROVIDED AND EXPLAINED. PT HAS NO CHOICE OF MEDICAL EQUIPMENT PROVIDER AFTER LISTING OF PROVIDERS GIVEN. CHOICE SIGNED. SHEELA CALLED [facility], , SPOKE TO FLORES AND PROVIDED REFERRAL INFORMATION. CM FAXED REFERRAL TO [facility], . FLORES WILL ARRANGE OVERNIGHT PULSE OX TESTING AFTER DISCHARGE HOME. CM FAXED REFERRAL TO [email or web address] AT [phone]. FOR DISCHARGE FAX DISCHARGE INFORMATION TO [facility] OFFICE AT [phone], CALL AND NOTIFY [facility] OF DISCHARGE HOME AT [phone]. High School Band Teacher: Perry Mckeon DCPIA - Discharge Planning Initial Assessment Updated by [id number]: Perry Mckeon on 11/23/18 4:55 pm * Is the patient Alert and Oriented? Yes * How many steps to enter\exit or inside your home? NONE * PCP DR. CELESTIN, [facility], [place] * Pharmacy [facility] IN [place] * Preadmission Environment Home with Family * ADLs Independent * Equipment Walker * Other Equipment [facility] - [facility]QUIPMENT PROVID[facility] * List name and contact numbers for known caregivers / representatives who currently or will assist patient after discharge: PEMA DEXTER, SPOUSE, * Verbal permission to speak to the caregivers and representatives has been obtained from the patient. Yes * Community resources currently utilized Home Health * Please name any agencies selected above. [facility] * Additional services required to return to the preadmission environment? No * Can the patient safely return to the preadmission environment? Yes * Has this patient been hospitalized within the prior 30 days at any hospital? No Coverage Notice Reviewer: [id number] Lita Mckeon Notice Issued Date-Time: 11/23/2018 9:15 Notice Type: Patient Choice Letter Notice Delivered To: Patient Relationship to Patient: Expansion Joint Finisher Name: Delivery Method: HAND - Hand Delivered Haylie Days: Prior Verbal Notification: Recipient Understood Notice: Yes Recipient Signature: Yes Med Rec Note Co-signed by Attending: Coverage Notice Comment: NO MEDICAL EQUIPMENT COMPANY PREFERENCE [facility] Reviewer: [id number] Lita Mckeon Notice Issued Date-Time: 11/23/2018 9:15 Notice Type: IM Discharge Notice Notice Delivered To: Patient Relationship to Patient: Expansion Joint Finisher Name: Delivery Method: HAND - Hand Delivered Haylie Days: Prior Verbal Notification: Recipient Understood Notice: Yes Recipient Signature: Yes Med Rec Note Co-signed by Attending: Coverage Notice Comment: Last DP export: 11/23/18 4:01 pm Patient Name: ALONDRA DEXTER Page [phone] at 1711 All edits/amendments must be made on the electronic document DICTATION DATE: 11/23/181709 STEEL RIGGER: KARELY 11/23/181709 RPT#: [id number] DE DATE: STATUS: ADM IN [facility] [address] [place] [address] END OF REPORT
--- NOTE | 2018-11-23 17:48 | NUR ---
PT AWARE TO BE NPO AFTER MIDNIGHT. HEART CATH CONSENTS SIGNED.
--- NOTE | 2018-11-23 19:51 | NUR ---
PT RESTING IN BED ALERT AND ORIENTED. PT BP-109/60. PT DENIES ANY CHEST PAIN AT THIS TIME. BED LOW CALL, LIGHT WITHIN REACH, WILL CONTINUE TO MONITOR.
[2018-11-24 00:30] VITALS: BP 114/70
--- NOTE | 2018-11-24 00:58 | NUR ---
PT RESTING COMFORTABLY IN BED WITH AT BEDSIDE. RR EVEN AND UNLABORED. NO S/S OF DISTRESS AT THIS TIME. BED LOW ERICKA LIGHT WITHIN REACH. WILL CONTINUE TO MONITOR.
[2018-11-24 04:30] VITALS: BP 109/63
--- NOTE | 2018-11-24 05:31 | NUR ---
I have reviewed this patient and I concur with the Shift Assessment completed by the Licensed Practical Nurse today this shift.
[2018-11-24 07:06] LABS: BASOPHILS 0 % (0-2); EOSINOPHILS 0.1 % (0-7); HEMATOCRIT 29.9 % (42.0-54.0); HEMOGLOBIN 10.3 g/dL (13.5-17.5); IMMATURE GRANULOCYTES 0.3 % (0-5); LYMPHOCYTES 14.6 % (15-50); MCH 26.5 pg (26.0-34.0); MCHC 34.4 g/dL (31.0-37.0); MCV 76.9 fL (80.0-100.0); MEAN PLATELET VOLUME 9.6 fL (7.4-10.4); MONOCYTES 9.7 % (2-11); NEUTROPHILS 75.3 % (40-80); PLATELET COUNT 401 10x3/uL (130-400); RBC 3.89 10x6/uL (4.20-6.10); RDW 14.4 % (11.5-14.5); WBC 13.3 10x3/uL (4.8-10.8)
[2018-11-24 07:26] LABS: ALBUMIN 2.4 g/dL (3.4-5.0); ALKALINE PHOSPHATASE 86 U/L (46-116); CALC OSMOLALITY 263 mosm/kg (275-300); CALCIUM 8.1 mg/dL (8.5-10.1); CARBON DIOXIDE 26.8 mmol/L (21.0-32.0); CHLORIDE - SERUM 92 mmol/L (98-107); GLUCOSE 199 mg/dL (74-106); MAGNESIUM - SERUM 1.9 mg/dL (1.8-2.4); PROTEIN - SERUM 6.2 g/dL (6.4-8.2); SODIUM 127 mmol/L (136-145); UREA NITROGEN 20 mg/dL (7-18); eGFR NON AFRICAN AMERICAN 75 mL/min (90-120)
[2018-11-24 07:27] LABS: ALT (SGPT) 11 U/L (10-68); POTASSIUM - SERUM 4.9 mmol/L (3.5-5.1)
[2018-11-24 08:30] VITALS: BP 136/55
--- NOTE | 2018-11-24 09:48 | NUR ---
AM MEDICATIONS HELD R/T NPO STATUS. PREOP MEDS ADMINISTERED PER FINISH INSPECTOR REQUEST. NS INFUSING @100ML/HR VIA R.WRIST PIV. FINISH INSPECTOR REQUESTED PREDNISONE AND EFFIENT BE ADMINISTERED TO PT BEFORE IN SPITE OF HOLD AM MEDICATIONS. ADMINISTERED THOSE PARTICULAR MEDICATIONS AND PT WAS TRANSFERED TO FINISH INSPECTOR. WILL CTM.
--- NOTE | 2018-11-24 11:41 | NUR ---
RECEIVED PT FROM CONDUIT REAMER OPERATOR. PT IS RESTING AT THIS TIME. NO S/S OF DISTRESS NOTED. NO S/S OF HEMATOMA PRESENT. RIGHT FEM SITE IS C/D/I. WILL CTM.
[2018-11-24 12:44] VITALS: BP 103/58
--- NOTE | 2018-11-24 15:01 | NUR ---
I have reviewed this patient and I concur with the Shift Assessment completed by the Licensed Practical Nurse today this shift.
[2018-11-24 16:45] VITALS: BP 95/59
[2018-11-24 20:00] VITALS: BP 100/57
[2018-11-25] VITALS: BP 98/55
--- NOTE | 2018-11-25 03:07 | NUR ---
RESTING WITH EYES CLOSED, RESPERATIONS EVEN, NO S/S DISTRESS NOTED.
[2018-11-25 04:00] VITALS: BP 116/56
[2018-11-25 05:52] LABS: BASOPHILS 0 % (0-2); EOSINOPHILS 0.3 % (0-7); HEMATOCRIT 29.4 % (42.0-54.0); HEMOGLOBIN 10.5 g/dL (13.5-17.5); IMMATURE GRANULOCYTES 0.5 % (0-5); LYMPHOCYTES 16.3 % (15-50); MCH 27.9 pg (26.0-34.0); MCHC 35.7 g/dL (31.0-37.0); MCV 78.2 fL (80.0-100.0); MEAN PLATELET VOLUME 9.8 fL (7.4-10.4); MONOCYTES 12.6 % (2-11); NEUTROPHILS 70.3 % (40-80); PLATELET COUNT 394 10x3/uL (130-400); RBC 3.76 10x6/uL (4.20-6.10); RDW 14.7 % (11.5-14.5); WBC 11.8 10x3/uL (4.8-10.8)
[2018-11-25 06:28] LABS: ALBUMIN 2.3 g/dL (3.4-5.0); ALKALINE PHOSPHATASE 82 U/L (46-116); ALT (SGPT) 11 U/L (10-68); BILIRUBIN - TOTAL 0.49 mg/dL (0.2-1.3); CALC OSMOLALITY 263 mosm/kg (275-300); CALCIUM 7.8 mg/dL (8.5-10.1); CARBON DIOXIDE 26.6 mmol/L (21.0-32.0); CHLORIDE - SERUM 96 mmol/L (98-107); CREATININE - SERUM 0.9 mg/dL (0.6-1.3); GLUCOSE 147 mg/dL (74-106); POTASSIUM - SERUM 4.6 mmol/L (3.5-5.1); PROTEIN - SERUM 6.5 g/dL (6.4-8.2); SODIUM 129 mmol/L (136-145); UREA NITROGEN 19 mg/dL (7-18); eGFR NON AFRICAN AMERICAN 85 mL/min (90-120)
--- NOTE | 2018-11-25 07:30 | NUR ---
ALERT AND ORIENTED. TELEMERTY SHOWS SR. 02 AT 2 L/M PER NC. . PT IS HARD OF HEARING. RIGHT WRIST IV WITH NS AT 100. RIGHT GROIN WITH DRSG DRY AND INTACT. FAMILY AT BEDSIDE. SR UP WITH CALL LIGHT IN REACH. WILL MONITOR
[2018-11-25 09:35] VITALS: BP 118/65
[2018-11-25 13:37] VITALS: BP 107/57
[2018-11-25 16:22] LABS: % SATURATION 10 % (15-55); IRON 24 ug/dl (35-150); TOTAL IRON BIND CAPACITY 234 ug/dl (260-445); UNSAT IRON BIND CAPACITY 210 ug/dl (150-375)
[2018-11-25 21:35] VITALS: BP 102/51
[2018-11-26] VITALS: BP 102/56
--- NOTE | 2018-11-26 02:02 | NUR ---
RESTING WITH EYES CLOSED, RESPERATIONS EVEN, NO S/S DISTRESS NOTED.
[2018-11-26 04:00] VITALS: BP 118/63
--- NOTE | 2018-11-26 04:57 | NUR ---
I have reviewed this patient and I concur with the Shift Assessment completed by the Licensed Practical Nurse today this shift.
[2018-11-26 06:39] LABS: BASOPHILS 0 % (0-2); EOSINOPHILS 0.4 % (0-7); HEMATOCRIT 29.7 % (42.0-54.0); HEMOGLOBIN 10.3 g/dL (13.5-17.5); IMMATURE GRANULOCYTES 0.5 % (0-5); LYMPHOCYTES 14.4 % (15-50); MCHC 34.7 g/dL (31.0-37.0); MCV 77.7 fL (80.0-100.0); MEAN PLATELET VOLUME 9.9 fL (7.4-10.4); MONOCYTES 12.9 % (2-11); NEUTROPHILS 71.8 % (40-80); PLATELET COUNT 415 10x3/uL (130-400); RBC 3.82 10x6/uL (4.20-6.10); RDW 14.7 % (11.5-14.5); WBC 13.6 10x3/uL (4.8-10.8)
[2018-11-26 07:10] LABS: ALBUMIN 2.2 g/dL (3.4-5.0); ALKALINE PHOSPHATASE 84 U/L (46-116); BILIRUBIN - TOTAL 0.36 mg/dL (0.2-1.3); CALC OSMOLALITY 263 mosm/kg (275-300); CALCIUM 8.1 mg/dL (8.5-10.1); CARBON DIOXIDE 25.1 mmol/L (21.0-32.0); CHLORIDE - SERUM 95 mmol/L (98-107); CREATININE - SERUM 0.9 mg/dL (0.6-1.3); GLUCOSE 145 mg/dL (74-106); MAGNESIUM - SERUM 1.8 mg/dL (1.8-2.4); POTASSIUM - SERUM 4.2 mmol/L (3.5-5.1); PROTEIN - SERUM 6.3 g/dL (6.4-8.2); SODIUM 129 mmol/L (136-145); UREA NITROGEN 18 mg/dL (7-18); eGFR NON AFRICAN AMERICAN 85 mL/min (90-120)
[2018-11-26 07:11] LABS: ALT (SGPT) 16 U/L (10-68)
--- NOTE | 2018-11-26 07:44 | NUR ---
ALERT AND ORIENTED. FAMILY AT BEDSIDE. TELEMERTY SHOW SB. PT IS HARD OF HEARING. 02 AT 2 L/M PER NC.DRSG TO RIGHT GROIN DRY AND INTACT. RIGHT WRIST IV WITH NS AT 30. SOME REDDNESS TO HIS BOTTOM. ENCOURAGED TO TURN OFTEN.
[2018-11-26 09:05] VITALS: BP 96/48
--- NOTE | 2018-11-26 11:40 | NUR ---
I have reviewed this patient and I concur with the Shift Assessment completed by the Licensed Practical Nurse today this shift.
[2018-11-26 12:31] VITALS: BP 106/53
--- NOTE | 2018-11-26 13:09 | NUR ---
LYING QUIETLY WITH NO NEEDS VOICED. FAMILY AT BEDSIDE. TELEMERTY SHOWS SR.
[2018-11-26 17:41] VITALS: BP 112/57
--- NOTE | 2018-11-26 18:05 | NUR ---
LYING QUIETLY. DENIES ANY NEEDS. IRON INFUSING TO RIGHT WRIST. TELEMERTY SHOWS SB. FAMILY AT BS. WILL MONITOR
[2018-11-26 20:00] VITALS: BP 118/56
--- NOTE | 2018-11-26 20:21 | NUR ---
INITIAL ROUNDS AND ASSESSMENT COMPLETED. PT RESTING IN BED. IV IRON COMPLETED AND RIGHT WRIST PIV SALINE LOCKED. O2 @ 2L/NC WITH NONLABORED RESPIRATIONS. 54/SB PER TELEMETRY AT THIS TIME. AT BEDSIDE. INSTRUCTED ON TURNING SIDE TO SIDE DUE TO RED REAR. CPOC.
--- NOTE | 2018-11-26 21:59 | NUR ---
BEDTIME MEDS GIVEN. FSBS 206, 4 UNITS SLIDING SCALE ADMINISTERED. SALINE LOCKED IV TO RIGHT WRIST AND SECURED DRESSING. AT BEDSIDE. BEDTIME SNACK PROVIDED.
[2018-11-27 00:01] VITALS: BP 123/55
[2018-11-27 04:00] VITALS: BP 119/60
--- NOTE | 2018-11-27 05:32 | NUR ---
AWAKE AND AM LABS BEING COLLECTED. HAS SLEPT THROUGH THE NIGHT. NO DISTRESS. NO CHANGE FROM INITIAL SHIFT ASSESSMENT. CPOC. AT BEDSIDE.
[2018-11-27 05:59] LABS: BASOPHILS 0 % (0-2); EOSINOPHILS 0.8 % (0-7); HEMATOCRIT 30.6 % (42.0-54.0); HEMOGLOBIN 10.4 g/dL (13.5-17.5); IMMATURE GRANULOCYTES 0.5 % (0-5); LYMPHOCYTES 11.7 % (15-50); MCH 26.5 pg (26.0-34.0); MCV 78.1 fL (80.0-100.0); MEAN PLATELET VOLUME 9.7 fL (7.4-10.4); MONOCYTES 7.2 % (2-11); NEUTROPHILS 79.8 % (40-80); PLATELET COUNT 442 10x3/uL (130-400); RBC 3.92 10x6/uL (4.20-6.10); RDW 14.8 % (11.5-14.5)
[2018-11-27 06:28] LABS: ALBUMIN 2.2 g/dL (3.4-5.0); ALKALINE PHOSPHATASE 79 U/L (46-116); ALT (SGPT) 13 U/L (10-68); BILIRUBIN - TOTAL 0.57 mg/dL (0.2-1.3); CALC OSMOLALITY 258 mosm/kg (275-300); CALCIUM 7.7 mg/dL (8.5-10.1); CARBON DIOXIDE 28.2 mmol/L (21.0-32.0); CHLORIDE - SERUM 95 mmol/L (98-107); CREATININE - SERUM 0.9 mg/dL (0.6-1.3); GLUCOSE 111 mg/dL (74-106); MAGNESIUM - SERUM 1.7 mg/dL (1.8-2.4); POTASSIUM - SERUM 4.1 mmol/L (3.5-5.1); PROTEIN - SERUM 6.2 g/dL (6.4-8.2); SODIUM 128 mmol/L (136-145); UREA NITROGEN 15 mg/dL (7-18); eGFR NON AFRICAN AMERICAN 85 mL/min (90-120)
[2018-11-27 06:31] LABS: WBC 19.2 10x3/uL (4.8-10.8)
--- NOTE | 2018-11-27 07:55 | NUR ---
BEDSIDE SHIFT REPORT DONE WITH NIGHT NURSE. PT IS ASLEEP AT PRESENT . FALL PRECAUTIONS ON. MONITOR SHOWS 62 SINUS NITIN.
--- NOTE | 2018-11-27 08:00 | NUR ---
BEDSIDE SHIFT REPORT DONE WITH NIGHT NURSE. PT IS ASLEEP. FALL PRECAUTIONS ON. MONITOR SHOWS 63 SR
[2018-11-27 08:47] VITALS: BP 106/49
--- NOTE | 2018-11-27 11:57 | NUR ---
Rehab Prescreening Consult recieved and I spoke to the CM Allan Mckeon. The patient walked 100 ft on 11/22/18 but since then he has either refused PT or has only done bed mobility. The CM states he plans to discharge home, but he will discuss ARU with him and contact rehab if he has changed his mind. Caitlin Webb RN Clinical liaison, Rehab
[2018-11-27 12:05] VITALS: BP 102/49
[2018-11-27] MEDS ORDERED: COREG 3.1253.125 MG PO (13:28)
[2018-11-27] MEDS ORDERED: OMNICEF300 MG PO (13:28)
[2018-11-27] MEDS ORDERED: VIBRAMYCIN 100100 MG PO (13:28)
[2018-11-27] MEDS ORDERED: PULMICORT0.5 MG/21 UPD (13:29)
[2018-11-27] MEDS ORDERED: SINGULAIR10 MG PO (13:29)
[2018-11-27] MEDS ORDERED: PREDNISONE20 MG PO (13:30)
--- NOTE | 2018-11-27 14:46 | MORECARE ---
CASE MANAGEMENT DISCHARGE SUMMARY PATIENT: ALONDRA DEXTER UNIT: [id number] ADM DATE: 11/20/18 AGE: 88 : 32 SEX: M ROOM/BED: D.2121 AUTHOR: JAIDA,DOC PHYSICIAN: REFERRING PHYSICIAN: JUAN CARLOS KNIGHT MD DATE OF SERVICE: 11/27/18 Discharge Plan Patient Name: ALONDRA DEXTER Facility: [facility]:[place] : 1930 Planned Disposition: Home Anticipated Discharge Date: 11/27/18 Discharge Date: Expected LOS: 7 Initial Reviewer: [id number] Initial Review Date: 11/20/2018 Generated: 11/27/18 3:46 pm Comments DCP- Discharge Planning Updated by [email or web address]: Perry Mckeon on 11/23/18 4:[address] Patient Name: ALONDRA DEXTER Admission Status: ER Accout number: [id number] Admission Date: 11-20-2018 : 1930 Admission Diagnosis: Attending: JUAN CARLOS KNIGHT Current LOS: 3 Anticipated DC Date: Planned Disposition: Home Primary Insurance: MEDICARE A & B Discharge Planning Comments: CM MET WITH PT, SPOUSE AND DAUGHTER IN ROOM TO DISCUSS DISCHARGE PLANNING AND NEEDS. ALONDRA DEXTER provided verbal consent to discuss current and ongoing needs with/in the presence of: SPOUSE AND DAUGHTER. PT REPORTS LIVING AT HOME INDEPENDENTLY WITH AND DAUGHTER. [place] PT HAS HOME HEALTH FOR NURSING AND THERAPY WITH [facility]. CM DISCUSSED AVAILABILITY OF HOME HEALTH, REHAB SERVICES AND MEDICAL EQUIPMENT. PT DENIES DISCHARGE NEEDS OTHER THAN THE OVERNIGHT PULSE OX AND [facility] RESUMPTION, REPORTSHIS DAUGHTER WILL PICK HIM UP FOR DISCHARGE HOME. IMPORTANT MESSAGE FROM MEDICARE PROVIDED AND EXPLAINED. PT HAS NO CHOICE OF MEDICAL EQUIPMENT PROVIDER AFTER LISTING OF PROVIDERS GIVEN. CHOICE SIGNED. SHEELA CALLED [facility], , SPOKE TO FLORES AND PROVIDED REFERRAL INFORMATION. CM FAXED REFERRAL TO [facility] [place] [facility], . FLORES WILL ARRANGE OVERNIGHT PULSE OX TESTING AFTER DISCHARGE HOME. CM FAXED REFERRAL TO [facility] AT [phone]. FOR DISCHARGE FAX DISCHARGE INFORMATION TO [facility] OFFICE AT [phone], CALL AND NOTIFY [facility] OF DISCHARGE HOME AT [phone]. Anesthesiology Physician Assistant: Perry Mckeon DCPIA - Discharge Planning Initial Assessment Updated by [id number]: Perry Mckeon on 11/23/18 4:55 pm * Is the patient Alert and Oriented? Yes * How many steps to enter\exit or inside your home? NONE * PCP DR[facility] CELESTIN, [facility] [place] * Pharmacy [facility] IN [place] * Preadmission Environment Home with Family * ADLs Independent * Equipment Walker * Other Equipment [facility] - MEDICAL EQUIPMENT PROVIDER * List name and contact numbers for known caregivers / representatives who currently or will assist patient after discharge: PEMA DEXTER, SPOUSE, * Verbal permission to speak to the caregivers and representatives has been obtained from the patient. Yes * Community resources currently utilized Home Health * Please name any agencies selected above. [facility] * Additional services required to return to the preadmission environment? No * Can the patient safely return to the preadmission environment? Yes * Has this patient been hospitalized within the prior 30 days at any hospital? No External Providers External Provider: [facility] Next Contact Date: 11/27/2018 Service Request Date: Service Type: Resolution: Reviewer: Comments: Coverage Notice Reviewer: [id number] Lita Mckeon Notice Issued Date-Time: 11/23/2018 9:15 Notice Type: Patient Choice Letter Notice Delivered To: Patient Relationship to Patient: After School Program Teacher Name: Delivery Method: HAND - Hand Delivered Haylie Days: Prior Verbal Notification: Recipient Understood Notice: Yes Recipient Signature: Yes Med Rec Note Co-signed by Attending: Coverage Notice Comment: NO MEDICAL EQUIPMENT COMPANY PREFERENCE [facility] Reviewer: [email or web address] Lita Mckeon Notice Issued Date-Time: 11/23/2018 9:15 Notice Type: IM Discharge Notice Notice Delivered To: Patient Relationship to Patient: After School Program Teacher Name: Delivery Method: HAND - Hand Delivered Haylie Days: Prior Verbal Notification: Recipient Understood Notice: Yes Recipient Signature: Yes Med Rec Note Co-signed by Attending: Coverage Notice Comment: Last DP export: 11/23/18 4:11 pm Patient Name: ALONDRA DEXTER Page [phone] at 1446 All edits/amendments must be made on the electronic document DICTATION DATE: 11/27/18 1446 CERTIFIED MEDICAL DOSIMETRIST: KARELY 11/27/18 1446 RPT#: [id number] DC DATE: STATUS: ADM IN [facility] [address] [place] [address] END OF REPORT
--- NOTE | 2018-11-27 14:53 | NUR ---
OT NOTE: PT ABLE TO PERFORM BED MOB WITH MIN ASSIST. STATIC SITTING ON EOB WITH GOOD BALANCE. PT ABLE TO MANAGE URINAL, HOWEVER, PT HAD SEVERAL INCONTINENCE EPISODES. PT WAS ABLE TO WASH FACE, HANDS, UPPER ARMS, AND UPPER LEGS WITH SET UP; MIN ASSIST TO MAGALI GOWN. STANDING TOLERANCE OF APPROX 3 MIN WITH USE OF WALKER. AMB INTO HALLWAY X APPROX 45-50 FT WITH MIN ASSIST, O2, AND VERBAL CUES TO STAY UP IN WALKER. VERY WIDE BASE OF SUPPORT DURING AMBULATION. TRANSFERRED TO CHAIR AND BED WITH WALKER AND MIN ASSIST. PT WOULD BENEFIT FROM CONTINUED THERAPY JOSEPH GALICIA, CATALINOR/L
--- NOTE | 2018-11-27 15:02 | MORECARE ---
CASE MANAGEMENT DISCHARGE SUMMARY PATIENT: ALONDRA DEXTER UNIT: [id number] ADM DATE: 11/20/18 AGE: 88 : 32 SEX: M ROOM/BED: D.2123 AUTHOR: JAIDA,DOC PHYSICIAN: REFERRING PHYSICIAN: JUAN CARLOS KNIGHT MD DATE OF SERVICE: 11/27/18 Discharge Plan Patient Name: ALONDRA DEXTER Facility: [facility]:[place] : 1930 Planned Disposition: Home Anticipated Discharge Date: 11/27/18 Discharge Date: Expected LOS: 7 Initial Reviewer: [id number] Initial Review Date: 11/20/2018 Generated: 11/27/18 4:01 pm Comments DCP- Discharge Planning Updated by [id number]: Perry Mckeon on 11/27/18 2:[address] Patient Name: ALONDRA DEXTER Encounter No: [id number] : 1930 Primary Insurance: MEDICARE A & B Anticipated DC Date: 11-27-2018 Planned Disposition: Home External Planned Provider: [facility] DCP follow-up note: CM RECEIVED ORDER FOR NEBULIZER AND OXYGEN TESTING. OXYGEN TESTING COMPELTED, PT NEEDS HOME AND PORTABLE OXYGEN. CM MET WITH PT AND FAMILY IN ROOM, DISCUSSED OPTIONS. [facility] AND HAS NO PREFERENCE ON COMMUNITY PROVIDER BUT WANTS CM TO SET THIS UP NOW PT'S "[employer] IS CALLING." CHOICE SIGNED FOR [facility] AND NO PROVIDER PREFERNCE. IMPORTANT MESSAGE FROM MEDICARE PROVIDED AND EXPLAINED. CM DISCUSSED REHAB OPTIONS AND HOME HEALTH. PT DECLINES FURTHER NEEDS AND STATES THAT [place] AL[place]SE. CM CALLED [facility], , SPOKE TO BASSEM PURDY WHO ADVISED IT WOULD TAKE A WEEK OR MORE FOR THE VEGETABLE FARM MANAGER AT [facility] TO REVIEW CHART AND TO MAKE A DECISION REGARDING TO PROVIDE THE OXYGEN AND NEBULIZER AND TO ARRANGE IT. SHEELA CALLED [facility], SPOKE TO FLORES, ; CM WAS ADVISED THAT NEBULIZER WOULD COSTS $1.15 PER MONTH, $2.35 FOR MAINTENANCE KITS EVERY SIX MONTHS IF PT WANTS THEM, OXYGEN CONCENTRATOR IS $14.05 PER MONTH AND PORTABLE OXYGEN IS $3.46 PER MONTH, FIRST MONTH FOR OXYGEN AND NEBULIZER TO BE PAID UP FRONT. CM SPOKE TO PT AND FAMILY IN ROOM, PT AND FAMILY AGREE TO USE [facility] AND TO SEND INFORMATION TO [facility] [place] SO [place] CAN WORK ON THIS WHILE PT IS AT HOME. CM CALLED [facility], , SPOKE TO FLORES AND PROVIDED REFERRAL INFORMATION. CM FAXED REFERRAL TO [facility], . FLORES ADVISED THEY WILL DELIVER PORTABLE OXYGEN TO HOSPITAL TODAY AND WILL ARRANGE HOME OXYGEN AND NEBULIZER TO PT'S HOME WHEN PT ARRIVES AT HOME AFTER DISCHARGE. CM FAXED PT'S INFORMATION TO [facility] AT [phone], CM CALLED [facility], , LEFT DETAILED MESSAGE FOR BASSEM PURDY, NOTIFYING OF PT'S REQUEST FOR [place] AND PT GOING HOME TODAY WITH OXYGEN AND NEBULIZER FROM [facility]. Perry Mckeon, CASE MANAGEMENT DCP- Discharge Planning Updated by [id number]: Perry Mckeon on 11/23/18 4:[address] Patient Name: ALONDRA Goff ISACC Admission Status: ER Accout number: [id number] Admission Date: 11-20-2018 : 1930 Admission Diagnosis: Attending: JUAN CARLOS KNIGHT Current LOS: 3 Anticipated DC Date: Planned Disposition: Home Primary Insurance: MEDICARE A & B Discharge Planning Comments: SHEELA MET WITH PT, SPOUSE AND DAUGHTER IN ROOM TO DISCUSS DISCHARGE PLANNING AND NEEDS. ALONDRA DEXTER provided verbal consent to discuss current and ongoing needs with/in the presence of: SPOUSE AND DAUGHTER. PT REPORTS LIVING AT HOME INDEPENDENTLY WITH AND DAUGHTER. [place]. PT HAS HOME HEALTH FOR NURSING AND THERAPY WITH [facility]. CM DISCUSSED AVAILABILITY OF HOME HEALTH, REHAB SERVICES AND MEDICAL EQUIPMENT. PT DENIES DISCHARGE NEEDS OTHER THAN THE OVERNIGHT PULSE OX AND [facility], REPORTSHIS DAUGHTER WILL PICK HIM UP FOR DISCHARGE HOME. IMPORTANT MESSAGE FROM MEDICARE PROVIDED AND EXPLAINED. PT HAS NO CHOICE OF MEDICAL EQUIPMENT PROVIDER AFTER LISTING OF PROVIDERS GIVEN. CHOICE SIGNED. CM CALLED [facility], , SPOKE TO FLORES AND PROVIDED REFERRAL INFORMATION. CM FAXED REFERRAL TO [facility], . FLORES WILL ARRANGE OVERNIGHT PULSE OX TESTING AFTER DISCHARGE HOME. CM FAXED REFERRAL TO [facility] AT [phone]. FOR DISCHARGE FAX DISCHARGE INFORMATION TO [facility] OFFICE AT [phone], CALL AND NOTIFY ISHA OF DISCHARGE HOME AT [phone]. Team Psychologist: Perry Mckeon [facility] - Discharge Planning Initial Assessment Updated by [id number]: Perry Mckeon on 11/23/18 4:55 pm * Is the patient Alert and Oriented? Yes * How many steps to enter\\exit or inside your home? NONE * PCP [facility] CELEST[facility], [facility] [place] * Pharmacy [facility] [place] * Preadmission Environment Home with Family * ADLs Independent * Equipment Walker * Other Equipment [facility] - MEDICAL EQUIPMENT PROVIDER * List name and contact numbers for known caregivers / representatives who currently or will assist patient after discharge: PEMA DEXTER, SPOUSE, * Verbal permission to speak to the caregivers and representatives has been obtained from the patient. Yes * Community resources currently utilized Home Health * Please name any agencies selected above. [facility] - [facility] * Additional services required to return to the preadmission environment? No * Can the patient safely return to the preadmission environment? Yes * Has this patient been hospitalized within the prior 30 days at any hospital? No Coverage Notice Reviewer: [id number] Mckeon Notice Issued Date-Time: 11/23/2018 9:15 Notice Type: Patient Choice Letter Notice Delivered To: Patient Relationship to Patient: Pump And Still Operator Name: Delivery Method: HAND - Hand Delivered Haylie Days: Prior Verbal Notification: Recipient Understood Notice: Yes Recipient Signature: Yes Med Rec Note Co-signed by Attending: Coverage Notice Comment: NO MEDICAL EQUIPMENT COMPANY PREFERENCE [facility] Reviewer: [id number] Mckeon Notice Issued Date-Time: 11/23/2018 9:15 Notice Type: IM Discharge Notice Notice Delivered To: Patient Relationship to Patient: Pump And Still Operator Name: Delivery Method: HAND - Hand Delivered Haylie Days: Prior Verbal Notification: Recipient Understood Notice: Yes Recipient Signature: Yes Med Rec Note Co-signed by Attending: Coverage Notice Comment: Reviewer: SHANDRA Mckeon Notice Issued Date-Time: 11/27/2018 12:25 Notice Type: IM Discharge Notice Notice Delivered To: Patient Relationship to Patient: Pump And Still Operator Name: Delivery Method: HAND - Hand Delivered Haylie Days: Prior Verbal Notification: Recipient Understood Notice: Yes Recipient Signature: Yes Med Rec Note Co-signed by Attending: Coverage Notice Comment: [facility] OR NO MEDICAL EQUIPMENT COMPANY PREFERENCE Last DP export: 11/27/18 1:46 pm Patient Name: ALONDRA DEXTER Page [phone] at 1502 All edits/amendments must be made on the electronic document DICTATION DATE: 11/27/18 150 BUTTON TUFTING MACHINE OPERATOR: KARELY 11/27/18 1501 RPT#: [id number] DC DATE: STATUS: ADM IN [facility] [address] [place] [address] END OF REPORT
--- NOTE | 2018-11-27 15:08 | NUR ---
OT NOTE: PT EXHIBITED DECREASED CONFUSION TODAY. PT COMPLETED BED MOB TASKS WITH MOD A. PT COMPLETED SIT TO STAND WITH MAX A. PT HAS GREAT DIFFICULTY WITH BEARING WT THROUGH LES. THANK YOU, ARIES GONZALES
--- NOTE | 2018-11-27 15:28 | MORECARE ---
CASE MANAGEMENT DISCHARGE SUMMARY PATIENT: ALONDRA DEXTER UNIT: [id number] ADM DATE: 11/20/18 AGE: 88 : 34 SEX: M ROOM/BED: D.2121 AUTHOR: JAIDA,DOC PHYSICIAN: REFERRING PHYSICIAN: JUAN CARLOS KNIGHT MD DATE OF SERVICE: 11/27/18 Discharge Plan Patient Name: ALONDRA DEXTER Facility: [facility]:[place] : 1930 Planned Disposition: Home Anticipated Discharge Date: 11/27/18 Discharge Date: Expected LOS: 7 Initial Reviewer: [email or web address] Initial Review Date: 11/20/2018 Generated: 11/27/18 4:27 pm Comments DCP- Discharge Planning Updated by [id number]: Perry Mckeon on 11/27/18 2:[address] Patient Name: ALONDRA DEXTER Encounter No: [id number] : 1930 Primary Insurance: MEDICARE A & B Anticipated DC Date: 11-27-2018 Planned Disposition: Home External Planned Provider: [facility] DCP follow-up note: CM CALLED [facility], [place] [address], , SPOKE SILVIA WHO VERIFIED PT IS ACTIVE AND ON HOSPITAL HOLD; CM FAXED REFERRAL TO AND DISCHARGE INFORMATION TO [facility] AT [phone]. PATIENT AND FAMILY NOTIFIED. Perry Mckeon, CASE MANAGEMENT DCP- Discharge Planning Updated by [id number]: Perry Mckeon on 11/27/18 2:[address] Patient Name: ALONDRA DEXTER Encounter No: [id number] : 1930 Primary Insurance: MEDICARE A & B Anticipated DC Date: 11-27-2018 Planned Disposition: Home External Planned Provider: [facility] PATIENT DCP follow-up note: CM RECEIVED ORDER FOR NEBULIZER AND OXYGEN TESTING. OXYGEN TESTING COMPELTED, PT NEEDS HOME AND PORTABLE OXYGEN. CM MET WITH PT AND FAMILY IN ROOM, DISCUSSED OPTIONS. [facility] AND HAS NO PREFERENCE ON COMMUNITY PROVIDER BUT WANTS CM TO SET THIS UP NOW PT'S "[employer] IS CALLING." CHOICE SIGNED FOR [facility] AND NO PROVIDER PREFERNCE. IMPORTANT MESSAGE FROM MEDICARE PROVIDED AND EXPLAINED. CM DISCUSSED REHAB OPTIONS AND HOME HEALTH. PT DECLINES FURTHER NEEDS AND STATES THAT HE ALREADY HAS A NURSE FROM THE [facility] COMING TO THE HOUSE. CM CALLED [facility], , SPOKE TO BASSEM PURDY WHO ADVISED IT WOULD TAKE A WEEK OR MORE FOR THE TESTING SPECIALIST AT AL TO REVIEW CHART AND TO MAKE A DECISION REGARDING TO PROVIDE THE OXYGEN AND NEBULIZER AND TO ARRANGE IT. CM CALLED [facility], SPOKE TO FLORES, ; CM WAS ADVISED THAT NEBULIZER WOULD COSTS $1.15 PER MONTH, $2.35 FOR MAINTENANCE KITS EVERY SIX MONTHS IF PT WANTS THEM, OXYGEN CONCENTRATOR IS $14.05 PER MONTH AND PORTABLE OXYGEN IS $3.46 PER MONTH, FIRST MONTH FOR OXYGEN AND NEBULIZER TO BE PAID UP FRONT. CM SPOKE TO PT AND FAMILY IN ROOM, PT AND FAMILY AGREE TO USE [facility] AND TO SEND INFORMATION TO [facility] [place] [address] SO THE [facility] CAN WORK ON THIS WHILE PT IS AT HOME. CM CALLED [facility], , SPOKE TO FLORES AND PROVIDED REFERRAL INFORMATION. CM FAXED REFERRAL TO [facility]IENT, . FLORES ADVISED THEY WILL DELIVER PORTABLE OXYGEN TO HOSPITAL TODAY AND WILL ARRANGE HOME OXYGEN AND NEBULIZER TO PT'S HOME WHEN PT ARRIVES AT HOME AFTER DISCHARGE. CM FAXED PT'S INFORMATION TO [facility] AT [phone], CM CALLED [facility], , LEFT DETAILED MESSAGE FOR BASSEM PURDY, NOTIFYING OF PT'S REQUEST FOR [facility] HOME OXYGEN AND PT GOING HOME TODAY WITH OXYGEN AND NEBULIZER FROM [facility] PATIENT. Perry Mckeon, CASE MANAGEMENT DCP- Discharge Planning Updated by [id number]: Perry Mckeon on 11/23/18 4:[address] Patient Name: ALONDRA Goff ISACC Admission Status: ER Accout number: [id number] Admission Date: 11-20-2018 : 1930 Admission Diagnosis: Attending: JUAN CARLOS KNIGHT Current LOS: 3 Anticipated DC Date: Planned Disposition: Home Primary Insurance: MEDICARE A & B Discharge Planning Comments: CM MET WITH PT, SPOUSE AND DAUGHTER IN ROOM TO DISCUSS DISCHARGE PLANNING AND NEEDS. ALONDRA DEXTER provided verbal consent to discuss current and ongoing needs with/in the presence of: SPOUSE AND DAUGHTER. PT REPORTS LIVING AT HOME INDEPENDENTLY WITH AND DAUGHTER. PT HAS WALKER FROM THE [facility]. PT HAS HOME HEALTH FOR NURSING AND THERAPY WITH [facility]. CM DISCUSSED AVAILABILITY OF HOME HEALTH, REHAB SERVICES AND MEDICAL EQUIPMENT. PT DENIES DISCHARGE NEEDS OTHER THAN THE OVERNIGHT PULSE OX AND [facility], REPORTSHIS DAUGHTER WILL PICK HIM UP FOR DISCHARGE HOME. IMPORTANT MESSAGE FROM MEDICARE PROVIDED AND EXPLAINED. PT HAS NO CHOICE OF MEDICAL EQUIPMENT PROVIDER AFTER LISTING OF PROVIDERS GIVEN. CHOICE SIGNED. CM CALLED [facility], , SPOKE TO FLORES AND PROVIDED REFERRAL INFORMATION. CM FAXED REFERRAL TO [facility], . FLORES WILL ARRANGE OVERNIGHT PULSE OX TESTING AFTER DISCHARGE HOME. CM FAXED REFERRAL TO [facility] AT [phone]. FOR DISCHARGE FAX DISCHARGE INFORMATION TO [facility] AT [phone], CALL AND NOTIFY [facility] OF DISCHARGE HOME AT [phone]. Ham Boner: Perry Mckeon DCPIA - Discharge Planning Initial Assessment Updated by [id number]: Perry Mckeon on 11/23/18 4:55 pm * Is the patient Alert and Oriented? Yes * How many steps to enter\\exit or inside your home? NONE * PCP [facility]LE[facility] [place] [address] * Pharmacy [facility] [place] [address] * Preadmission Environment Home with Family * ADLs Independent * Equipment Walker * Other Equipment [facility] - MEDICAL EQUIPMENT PROVIDER * List name and contact numbers for known caregivers / representatives who currently or will assist patient after discharge: PEMA DEXTER, SPOUSE, * Verbal permission to speak to the caregivers and representatives has been obtained from the patient. Yes * Community resources currently utilized Home Health * Please name any agencies selected above. [facility] * Additional services required to return to the preadmission environment? No * Can the patient safely return to the preadmission environment? Yes * Has this patient been hospitalized within the prior 30 days at any hospital? No Coverage Notice Reviewer: [id number] - Perry Mckeon Notice Issued Date-Time: 11/23/2018 9:15 Notice Type: Patient Choice Letter Notice Delivered To: Patient Relationship to Patient: Patient Access Specialist Name: Delivery Method: HAND - Hand Delivered Haylie Days: Prior Verbal Notification: Recipient Understood Notice: Yes Recipient Signature: Yes Med Rec Note Co-signed by Attending: Coverage Notice Comment: NO MEDICAL EQUIPMENT COMPANY PREFERENCE [facility] Reviewer: [id number] Lita Mckeon Notice Issued Date-Time: 11/23/2018 9:15 Notice Type: IM Discharge Notice Notice Delivered To: Patient Relationship to Patient: Patient Access Specialist Name: Delivery Method: HAND - Hand Delivered Haylie Days: Prior Verbal Notification: Recipient Understood Notice: Yes Recipient Signature: Yes Med Rec Note Co-signed by Attending: Coverage Notice Comment: Reviewer: SHANDRA Mckeon Notice Issued Date-Time: 11/27/2018 12:25 Notice Type: IM Discharge Notice Notice Delivered To: Patient Relationship to Patient: Patient Access Specialist Name: Delivery Method: HAND - Hand Delivered Haylie Days: Prior Verbal Notification: Recipient Understood Notice: Yes Recipient Signature: Yes Med Rec Note Co-signed by Attending: Coverage Notice Comment: [facility] OR NO MEDICAL EQUIPMENT COMPANY PREFERENCE Reviewer: [id number] Mckeon Notice Issued Date-Time: 11/27/2018 12:25 Notice Type: IM Discharge Notice Notice Delivered To: Patient Relationship to Patient: Patient Access Specialist Name: Delivery Method: HAND - Hand Delivered Haylie Days: Prior Verbal Notification: Recipient Understood Notice: Yes Recipient Signature: Yes Med Rec Note Co-signed by Attending: Coverage Notice Comment: Last DP export: 11/27/18 2:02 pm Patient Name: ALONDRA DEXTER Page 14207 at 1528 All edits/amendments must be made on the electronic document DICTATION DATE: 11/27/181526 DANCE CHOREOGRAPHER: KARELY 11/27/18 152 RPT#: [id number] DC DATE: STATUS: ADM IN [facility] [address] [place] [address] END OF REPORT
--- NOTE | 2018-11-27 15:36 | NUR ---
OT NOTE: PT COMPLETED BED MOB TASKS WITH V/CS AND SUPV. PT COMPLETED STANDING BALANCE WITH MIN A TO HOLD URINAL. PT COMPLETED FACE WASH AND HAND WASH WITH SET UP. THANK YOU, ARIES GONZALES
--- NOTE | 2018-11-27 15:52 | MORECARE ---
CASE MANAGEMENT DISCHARGE SUMMARY PATIENT: ALONDRA DEXTER UNIT: [id number] ADM DATE: 11/20/18 AGE: 88 : 34 SEX: M ROOM/BED: D.2121 AUTHOR: JAIDA,DOC PHYSICIAN: REFERRING PHYSICIAN: JUAN CARLOS KNIGHT MD DATE OF SERVICE: 11/27/18 Discharge Plan Patient Name: ALONDRA DEXTER Facility: [facility]:[place] : 1930 Planned Disposition: Home Anticipated Discharge Date: 11/27/18 Discharge Date: Expected LOS: 7 Initial Reviewer: [id number] Initial Review Date: 11/20/2018 Generated: 11/27/18 4:51 pm Comments DCP- Discharge Planning Updated by [id number]: Perry Mckeon on 11/27/18 2:[address] Patient Name: ALONDRA DEXTER Encounter No: [id number] : 1930 Primary Insurance: MEDICARE A & B Anticipated DC Date: 11-27-2018 Planned Disposition: Home External Planned Provider: [facility] DCP follow-up note: CM CALLED [facility], [place] OFFICE, , SPOKE SILVIA WHO VERIFIED PT IS ACTIVE AND ON HOSPITAL HOLD; CM FAXED REFERRAL TO AND DISCHARGE INFORMATION TO [facility] AT [phone]. PATIENT AND FAMILY NOTIFIED. Perry Mckeon, CASE MANAGEMENT DCP- Discharge Planning Updated by [id number]: Perry Mckeon on 11/27/18 2:[address] Patient Name: ALONDRA DEXTER Encounter No: [id number] : 1930 Primary Insurance: MEDICARE A & B Anticipated DC Date: 11-27-2018 Planned Disposition: Home External Planned Provider: [facility] PATIENT DCP follow-up note: CM RECEIVED ORDER FOR NEBULIZER AND OXYGEN TESTING. OXYGEN TESTING COMPELTED, PT NEEDS HOME AND PORTABLE OXYGEN. CM MET WITH PT AND FAMILY IN ROOM, DISCUSSED OPTIONS. [facility] WOULD LIKE TO USE [facility] AND HAS NO PREFERENCE ON COMMUNITY PROVIDER BUT WANTS CM TO SET THIS UP NOW PT'S "[employer] IS CALLING." CHOICE SIGNED FOR [facility] AND NO PROVIDER PREFERNCE. IMPORTANT MESSAGE FROM MEDICARE PROVIDED AND EXPLAINED. CM DISCUSSED REHAB OPTIONS AND HOME HEALTH. PT DECLINES FURTHER NEEDS AND STATES THAT HE ALREADY HAS A NURSE FROM [facility] COMING TO THE HOUSE. CM CALLED [facility], , SPOKE TO BASSEM PURDY WHO ADVISED IT WOULD TAKE A WEEK OR MORE FOR THE OVERHEAD CRANE TECHNICIAN AT [facility] TO REVIEW CHART AND TO MAKE A DECISION REGARDING TO PROVIDE THE OXYGEN AND NEBULIZER AND TO ARRANGE IT. CM CALLED [facility], SPOKE TO FLORES, ; CM WAS ADVISED THAT NEBULIZER WOULD COSTS $1.15 PER MONTH, $2.35 FOR MAINTENANCE KITS EVERY SIX MONTHS IF PT WANTS THEM, OXYGEN CONCENTRATOR IS $14.05 PER MONTH AND PORTABLE OXYGEN IS $3.46 PER MONTH, FIRST MONTH FOR OXYGEN AND NEBULIZER TO BE PAID UP FRONT. CM SPOKE TO PT AND FAMILY IN ROOM, PT AND FAMILY AGREE TO USE [facility] AND TO SEND INFORMATION TO [facility] [place] SO THE [facility] CAN WORK ON THIS WHILE PT IS AT HOME. CM CALLED [facility], , SPOKE TO FLORES AND PROVIDED REFERRAL INFORMATION. CM FAXED REFERRAL TO [facility], . FLORES ADVISED THEY WILL DELIVER PORTABLE OXYGEN TO HOSPITAL TODAY AND WILL ARRANGE HOME OXYGEN AND NEBULIZER TO PT'S HOME WHEN PT ARRIVES AT HOME AFTER DISCHARGE. CM FAXED PT'S INFORMATION TO [facility] AT [phone], CM CALLED [facility], , LEFT DETAILED MESSAGE FOR BAS[facility] PURDY, NOTIFYING OF PT'S REQUEST FOR [facility] AND PT GOING HOME TODAY WITH OXYGEN AND NEBULIZER FROM [facility] PATIENT. Perry Mckeon, CASE MANAGEMENT DCP- Discharge Planning Updated by [id number]: Perry Mckeon on 11/23/18 4:[address] Patient Name: ALONDRA Goff ISACC Admission Status: ER Accout number: [id number] Admission Date: 11-20-2018 : 1930 Admission Diagnosis: Attending: JUAN CARLOS KNIGHT Current LOS: 3 Anticipated DC Date: Planned Disposition: Home Primary Insurance: MEDICARE A & B Discharge Planning Comments: CM MET WITH PT, SPOUSE AND DAUGHTER IN ROOM TO DISCUSS DISCHARGE PLANNING AND NEEDS. ALONDRA DEXTER provided verbal consent to discuss current and ongoing needs with/in the presence of: SPOUSE AND DAUGHTER. PT REPORTS LIVING AT HOME INDEPENDENTLY WITH AND DAUGHTER. PT [facility]. PT HAS HOME HEALTH FOR NURSING AND THERAPY WITH [facility]. CM DISCUSSED AVAILABILITY OF HOME HEALTH, REHAB SERVICES AND MEDICAL EQUIPMENT. PT DENIES DISCHARGE NEEDS OTHER THAN THE OVERNIGHT PULSE OX AND [facility], REPORTSHIS DAUGHTER WILL PICK HIM UP FOR DISCHARGE HOME. IMPORTANT MESSAGE FROM MEDICARE PROVIDED AND EXPLAINED. PT HAS NO CHOICE OF MEDICAL EQUIPMENT PROVIDER AFTER LISTING OF PROVIDERS GIVEN. CHOICE SIGNED. CM CALLED [facility], , SPOKE TO FLORES AND PROVIDED REFERRAL INFORMATION. CM FAXED REFERRAL TO [facility], . FLORES WILL ARRANGE OVERNIGHT PULSE OX TESTING AFTER DISCHARGE HOME. CM FAXED REFERRAL TO [facility] AT [phone]. FOR DISCHARGE FAX DISCHARGE INFORMATION TO [facility] AT [phone], CALL AND NOTIFY IS[facility] OF DISCHARGE HOME AT [phone]. Applied Computer Science Professor: Perry Mckeon DCPIA - Discharge Planning Initial Assessment Updated by [id number]: Perry Mckeon on 11/23/18 4:55 pm * Is the patient Alert and Oriented? Yes * How many steps to enter\\exit or inside your home? NONE * PCP [facility]LEST[facility], [facility] [place] * Pharmacy [facility] [place] * Preadmission Environment Home with Family * ADLs Independent * Equipment Walker * Other Equipment [facility] - MEDICAL EQUIPMENT PROVIDER * List name and contact numbers for known caregivers / representatives who currently or will assist patient after discharge: PEMA DEXTER, SPOUSE, * Verbal permission to speak to the caregivers and representatives has been obtained from the patient. Yes * Community resources currently utilized Home Health * Please name any agencies selected above. [facility] * Additional services required to return to the preadmission environment? No * Can the patient safely return to the preadmission environment? Yes * Has this patient been hospitalized within the prior 30 days at any hospital? No Coverage Notice Reviewer: [id number] - Perry Mckeon Notice Issued Date-Time: 11/23/2018 9:15 Notice Type: Patient Choice Letter Notice Delivered To: Patient Relationship to Patient: Bullet Lubricant Mixer Name: Delivery Method: HAND - Hand Delivered Haylie Days: Prior Verbal Notification: Recipient Understood Notice: Yes Recipient Signature: Yes Med Rec Note Co-signed by Attending: Coverage Notice Comment: NO MEDICAL EQUIPMENT COMPANY PREFERENCE [facility] Reviewer: [id number] Lita Mckeon Notice Issued Date-Time: 11/23/2018 9:15 Notice Type: IM Discharge Notice Notice Delivered To: Patient Relationship to Patient: Bullet Lubricant Mixer Name: Delivery Method: HAND - Hand Delivered Haylie Days: Prior Verbal Notification: Recipient Understood Notice: Yes Recipient Signature: Yes Med Rec Note Co-signed by Attending: Coverage Notice Comment: Reviewer: SHANDRA Mckeon Notice Issued Date-Time: 11/27/2018 12:25 Notice Type: IM Discharge Notice Notice Delivered To: Patient Relationship to Patient: Bullet Lubricant Mixer Name: Delivery Method: HAND - Hand Delivered Haylie Days: Prior Verbal Notification: Recipient Understood Notice: Yes Recipient Signature: Yes Med Rec Note Co-signed by Attending: Coverage Notice Comment: [facility] OR NO MEDICAL EQUIPMENT COMPANY PREFERENCE Reviewer: [id number] Mckeon Notice Issued Date-Time: 11/27/2018 12:25 Notice Type: IM Discharge Notice Notice Delivered To: Patient Relationship to Patient: Bullet Lubricant Mixer Name: Delivery Method: HAND - Hand Delivered Haylie Days: Prior Verbal Notification: Recipient Understood Notice: Yes Recipient Signature: Yes Med Rec Note Co-signed by Attending: Coverage Notice Comment: Last DP export: 11/27/18 2:27 pm Patient Name: ALONDRA DEXTER Page 91949 at 1552 All edits/amendments must be made on the electronic document DICTATION DATE: 11/27/181550 CLINICAL TEAM LEAD: KARELY 11/27/181550 RPT#: [id number] DC DATE: STATUS: ADM IN [facility] [address] [place] [address] END OF REPORT
--- NOTE | 2018-11-27 16:46 | NUR ---
PATIENT IS STABLE AND VSS. PATIENT DENIES ANY NEEDS OR PAIN. ORDERS RECEIVED FOR DC. WRITTEN AND VERBAL INSTRUCTIONS GIVEN TO PT, AND GRANDDTR. PATIENT AND FAMILY VERBALIZED UNDERSTANDING AND SIGNED DC INSTRUCTIONS. IV DC/D WITHOUT DIFFCIULTY WITH ENTIRE IV CATHETER INTACT. WAITING ON HOME MEDICAL TO BRING O2 EQUIPMENT
--- NOTE | 2018-11-29 14:31 | OP ---
PATIENT NAME: ALONDRA DEXTER MEDICAL RECORD: [id number] :[birth year] LOCATION:D.M2 D.2121 ADMISSION DATE:11/20/18 SURGEON: NILS STANTON MD DATE OF OPERATION: 11/24/2018 PROCEDURES: 1. PTCA stent RCA. 2. IFR LAD, left circumflex and RCA. 3. Left heart catheterization. 4. Selective coronary angiography. 5. Left ventriculogram. INDICATION: Angina, coronary artery disease, and cardiomyopathy. PROCEDURE IN DETAIL: After informed consent was obtained and after a detailed description of risks, benefits as well as alternative therapies, the patient elected to proceed with angiogram and angioplasty. The right femoral area was prepped and draped in normal sterile fashion. Right femoral artery was cannulated via modified Seldinger technique with placement of 6-Guyanese sheath. All catheters exchanged through this sheath. FINDINGS: The left ventriculogram was performed in standard 30-degree JASMINE view, reveals severe cardiomyopathy, worse than previous, ejection fraction now in the 15% range. SELECTIVE CORONARY ANGIOGRAPHY: 1. Left main is with no significant angiographic disease. 2. Left anterior descending has a previously placed stent. This is widely patent. He has questionable stenosis proximally; however, IFR was normal. 3. Left circumflex has a previously placed stent. This is widely patent. There is a questionable stenosis proximally; however, IFR was normal. 4. Right coronary artery has 70% to 75% stenosis in the mid vessel. IFR was grossly abnormal at 0.74. PTCA STENT OF THE RCA: The stent used was 2.5 x 30 mm Cobra. Result was 0% residual stenosis. OVERALL IMPRESSION: Successful percutaneous transluminal coronary angioplasty stent of the right coronary artery going from 70% to 75% initial stenosis to 0% residual. TRANSINT:[id number] Voice Confirmation ID: [id number] DOCUMENT ID: [id number] NILS STANTON MD at 1431 CC: [id number] DICTATION DATE: 11/24/18 1035 GENERAL CLEANER: 11/24/18 1129 DIS IN 11/27/18 [place] [address]
== END 2018-11-27 18:30 | disposition home health service (06) | DRG 248 ==
LOC: D.ER 01:36 → D.M2 01:51 → OBSVTIME 01:51 → D.M2 13:30
PROVIDERS: Emergency Medicine; Family Medicine Adult Medicine; Internal Medicine Interventional Cardiology; Internal Medicine Pulmonary Disease; ADMIT Internal Medicine Nephrology; ATTEND Internal Medicine Nephrology
PROC: 4A023N7 Measurement of Cardiac Sampling and Pressure, Left Heart, Percutaneous Approach (ICD-10-PCS; 2018-11-24)
PROC: B2111ZZ Fluoroscopy of Multiple Coronary Arteries using Low Osmolar Contrast (ICD-10-PCS; 2018-11-24)
PROC: B2151ZZ Fluoroscopy of Left Heart using Low Osmolar Contrast (ICD-10-PCS; 2018-11-24)
PROC: 02703DZ Dilation of Coronary Artery, One Artery with Intraluminal Device, Percutaneous Approach (ICD-10-PCS; principal; 2018-11-24 09:33)
PROC: 4A033BC Measurement of Arterial Pressure, Coronary, Percutaneous Approach (ICD-10-PCS; 2018-11-24 09:33)
DX: I21.4 Non-ST elevation (NSTEMI) myocardial infarction (principal); J15.6 Pneumonia due to other Gram-negative bacteria; J13 Pneumonia due to Streptococcus pneumoniae; I50.23 Acute on chronic systolic (congestive) heart failure; J96.01 Acute respiratory failure with hypoxia; J98.11 Atelectasis; J44.0 Chronic obstructive pulmonary disease with (acute) lower respiratory infection; J44.1 Chronic obstructive pulmonary disease with (acute) exacerbation; E87.1 Hypo-osmolality and hyponatremia; I25.119 Atherosclerotic heart disease of native coronary artery with unspecified angina pectoris; Z86.73 Personal history of transient ischemic attack (TIA), and cerebral infarction without residual deficits; K21.9 Gastro-esophageal reflux disease without esophagitis; E11.9 Type 2 diabetes mellitus without complications; J30.9 Allergic rhinitis, unspecified; F03.90 Unspecified dementia, unspecified severity, without behavioral disturbance, psychotic disturbance, mood disturbance, and anxiety; L40.9 Psoriasis, unspecified; N40.0 Benign prostatic hyperplasia without lower urinary tract symptoms; E83.42 Hypomagnesemia; D50.9 Iron deficiency anemia, unspecified; Z66 Do not resuscitate; R53.81 Other malaise; I08.1 Rheumatic disorders of both mitral and tricuspid valves; I25.5 Ischemic cardiomyopathy